=== PATIENT | female | born 1975 | race Caucasian/White ===

== ENCOUNTER 2023-10-23 13:53 | Inpatient (IN) ==
[2023-10-23 14:36] LABS: Basophils # (auto) 0.09 K/uL (0.00-0.20); Basophils % (auto) 0.9 %; Eosinophils # (auto) 0.18 K/uL (0.00-0.50); Eosinophils % (auto) 1.8 %; Hematocrit (blood only) 45.6 % (37.0-47.0); Hemoglobin 15.4 g/dl (12.0-16.0); Immature Granulocytes # (auto) 0.03 K/uL (0.01-0.20); Immature Granulocytes % (auto) 0.3 %; Lymphocytes # (auto) 4.32 K/uL (1.20-3.40); Lymphocytes % (auto) 42.9 %; Mean Corpuscular Hemoglobin 32.2 pg (25.0-34.0); Mean Corpuscular Hgb Conc 33.8 g/dL (32.0-36.0); Mean Corpuscular Volume 95.4 fL (80.0-100.0); Mean Platelet Volume 11.5 fL (9.4-12.4); Monocytes # (auto) 0.52 K/uL (0.11-0.59); Monocytes % (auto) 5.2 %; Neutrophils # (auto) 4.92 K/uL (1.40-6.50); Neutrophils % (auto) 48.9 %; Platelet Count 222 K/uL (130-400); RDW Coefficient of Variation 12.7 % (11.5-14.5); RDW Standard Deviation 44.8 fL (36.4-46.3); Red Blood Count 4.78 M/uL (4.20-5.40); White Blood Count 10.06 K/ul (4.8-10.8)
--- NOTE | 2023-10-23 14:52 | XRay Report ---
XR chest 1V portable HISTORY: 48 years-old Female Chest pain, nonspecific COMPARISON: None TECHNIQUE: AP view of the chest FINDINGS: Cardiomediastinal and hilar silhouettes are within normal limits. There is minimal linear left basila r atelectasis. No pneumothorax, pleural effusion or pulmonary edema. Bones appear grossly intact. IMPRESSION: No acute process. ACT 112: Negative or not required by law. The above report was generated using voice recognition software. It may contain grammatical, syntax o r spelling errors. Electronically signed by: Jeffrey Pike M.D. 10/23/2023 2:51 PM
[2023-10-23 14:54] LABS: Albumin Globulin Ratio 1.5 (0.9-2); BUN Creatinine Ratio 6.9 (10-20); Bilirubin,Total 0.5 mg/dl (0.2-1.0); Calcium 8.7 mg/dl (8.6-10.3); Creatinine Clr Calc Pharmacy 100.6 ml/min; Est GFR (African American) 91.3 ml/min; Est GFR (Non-African American) 78.8 ml/min; Globulin 2.6 gm/dl (2.5-4.0); Potassium 3.2 mmol/L (3.5-5.1); Total Protein 6.6 gm/dl (6.0-8.3)
[2023-10-23 15:00] LABS: Troponin I High Sensitivity 14.6 pg/ml (0-14)
--- NOTE | 2023-10-23 15:10 | Emergency Department Note ---
Impression & Plan Chest pain, Abnormal ECG, CHF exacerbation ED Provider Note NAME: CAIN RITCHIE AGE: 48 SEX: F : 1975 ARRIVES VIA: Walk-In INFORMANT: Patient, ED PROVIDER(S): Kalie Booker MD CHIEF COMPLAINT: chest pain HPI: This is a 40-year-old female with history of obesity, fatty liver disease, venous stasis insufficiency presenting for shortness of breath, chest pain. Patient notes that over the past few months he has not increased symptoms of exertional dyspnea. She notes she does take Lasix which does help with her symptoms but is not fully managing her weight gain in her bilateral lower extremities. She notes occasional chest pain, septi associated with exertion sometimes at rest. She is attempted to get care outside the hospital including echoes which are scheduled for 1 to 2 months from now as well as her testing which is delayed. No pleurisy, leg pain. ROS: See above HPI for pertinent positives & negatives. A total of 10 systems reviewed and were otherwise negative. PAST MEDICAL HISTORY: See Below PAST SURGICAL HISTORY: See Below FAMILY HISTORY: See Below SOCIAL HISTORY: See Below HOME MEDICATIONS: See Below ALLERGIES: See Below VITALS: See Below PHYSICAL EXAMINATION: General: resting comfortably in no acute distress Head: Normocephalic and atraumatic Eyes: Normal inspection, extraocular muscles intact Ear, nose, throat: Normal external exam Neck: Normal range of motion Respiratory: lungs clear to auscultation bilaterally Cardiovascular: Regular rate/rhythm, no murmur GI: soft, nontender, no guarding or rebound Extremities: 2+ edema to bilateral lower extremities below the ankles Neuro: The patient awake and alert, appropriately conversive, no focal deficits, symmetric faces Skin: Warm, dry, and intact MEDICAL DECISION MAKING: This is a 48-year-old female presenting for shortness of breath and chest pain. Consider CHF, ACS, low concern for PE without hypoxia. -Patient overall appears well but has had worsening symptoms slowly the past few months. She has shortness of breath with exertion, chest pain making CHF more likely. -ECG independently interpreted by me with normal sinus rhythm, rate of 67, normal axis, normal MA, right bundle branch block, normal QTc, no ST segment elevations consistent with STEMI criteria, new T wave inversions in 3 and lead III, 3 -Old EKG reviewed from 02 September showing this right bundle branch block -Patient has symptoms of hypertensive to 220/117 today -Overall patient does appear well however she is having chest pain with new EKG changes and exertional dyspnea. Consider CHF/cardiac insult. Patient still elevated troponin on blood work. -Bloodwork is reviewed showing no significant leukocytosis, anemia, electrolyte or creatinine abnormality. Does have transaminitis at this time, likely due to her fatty liver disease. BNP also elevated -Case discussed with patient hospital service for admission under Dr. Rosas. Differential diagnosis: ACS, CHF, PE, dissection, pneumonia ER treatment provided: See below Independent History obtained from: Diagnostics interpreted by me: ECG: See above Cardiac Monitoring: An order was placed for continuous cardiac monitoring. The monitor shows a rate of 62 with sinus rhythm. Laboratory studies: As stated above and show below. Imaging studies: See below. Past Med/Surg History Problem List (Updated 10/23/23 @ 21:12 by Kalie Booker MD) CHF exacerbation (Acute) Abnormal ECG (Acute) Chest pain (Acute) Medical History Mixed incontinence urge and stress High serum ferritin Tobacco use Myelopathy Essential tremor Migraines Epilepsy Restless legs syndrome Vitamin E deficiency Folic acid deficiency Hepatic steatosis Irritable bowel syndrome (IBS) Morbid obesity HTN (hypertension) CAD (coronary artery disease) Laryngopharyngeal reflux Mild obstructive sleep apnea Moderate persistent asthma Thyroid nodule Hypothyroidism Social History Smoking Status: Current every day smoker Tobacco Type: Cigarettes Hx Alcohol Use: No Hx Substance Use: Yes Preferred Language: [employer] Required: No Beliefs That Will Affect Care: None Current Living Situation: Spouse Feels Safe at Home: Yes Allergies Allergies Allergy/AdvReac Type Severity Reaction Status Date / Time rosuvastatin [From Crestor] Allergy Mild Joint Pain Verified 10/23/23 17:08 Home Meds Home Medications Medication Instructions Recorded Confirmed albuterol sulfate 90 mcg/actuation 2 puff inhalation QID PRN SOB or 10/23/23 10/23/23 aerosol inhaler Wheezing budesonide-formoterol HFA 160 2 puff inhalation BID 10/23/23 10/23/23 mcg-4.5 mcg/actuation aerosol inhaler cetirizine 10 mg tablet 10 mg PO DAILY 10/23/23 10/23/23 cholecalciferol (vitamin D3) 100 1,000 unit PO HS 10/23/23 10/23/23 mcg (4,000 unit) capsule folic acid 1 mg tablet 1 mg PO DAILY 10/23/23 10/23/23 furosemide 20 mg tablet 20 mg PO DAILY 10/23/23 10/23/23 levothyroxine 88 mcg tablet 88 mcg PO DAILY 10/23/23 10/23/23 losartan 50 mg tablet 50 mg PO DAILY 10/23/23 10/23/23 omeprazole 20 mg tablet,delayed 20 mg PO DAILY 10/23/23 10/23/23 release Results & Data (ED) Vital Signs Vital Signs - 24 hr 10/23/23 13:55 10/23/23 14:05 10/23/23 14:32 Temperature 36.8 C Temperature Source Skin Pulse Rate 90 68 Pulse Rate from SpO2 Sensor Pulse Rhythm Regular Pulse Strength Normal Respiratory Rate 18 Respiratory Effort / Characteristics Non-Labored SOB on Exertion Respiratory Depth Normal Normal Respiratory Pattern Regular Blood Pressure 222/117 H Blood Pressure Mean 152 Pulse Oximetry 100 Oxygen Delivery Method Room Air Sepsis Recent Fever Within 48 Hours No Sepsis New/Unexplained Change in Mental Status No Sepsis Action Taken by Nursing No Action Required 10/23/23 15:12 10/23/23 15:30 Temperature Temperature Source Pulse Rate 60 56 L Pulse Rate from SpO2 Sensor 61 56 L Pulse Rhythm Pulse Strength Respiratory Rate 16 17 Respiratory Effort / Characteristics Respiratory Depth Respiratory Pattern Blood Pressure 145/91 H 116/70 Blood Pressure Mean 109 85 Pulse Oximetry 95 98 Oxygen Delivery Method Sepsis Recent Fever Within 48 Hours Sepsis New/Unexplained Change in Mental Status Sepsis Action Taken by Nursing Laboratory Data 10/23/23 14:17 10/23/23 14:17 Lab Results 10/23/23 Range/Units 14:17 WBC 10.06 (4.8-10.8) K/ul RBC 4.78 (4.20-5.40) M/uL Hgb 15.4 (12.0-16.0) g/dl Hct 45.6 (37.0-47.0) % MCV 95.4 (80.0-100.0) fL MCH 32.2 (25.0-34.0) pg MCHC 33.8 (32.0-36.0) g/dL RDW Std Deviation 44.8 (36.4-46.3) fL RDW Coeff of Kite 12.7 (11.5-14.5) % Plt Count 222 (130-400) K/uL MPV 11.5 (9.4-12.4) fL Immature Gran % (Auto) 0.3 % Neut % (Auto) 48.9 % Lymph % (Auto) 42.9 % [place] % (Auto) 5.2 % Eos % (Auto) 1.8 % Baso % (Auto) 0.9 % Neut # (Auto) 4.92 (1.40-6.50) K/uL Lymph # (Auto) 4.32 H (1.20-3.40) K/uL [place] # (Auto) 0.52 (0.11-0.59) K/uL Eos # (Auto) 0.18 (0.00-0.50) K/uL Baso # (Auto) 0.09 (0.00-0.20) K/uL Immature Gran # (Auto) 0.03 (0.01-0.20) K/uL Sodium 143 (136-145) mmol/L Potassium 3.2 L (3.5-5.1) mmol/L Chloride 107 (98-107) mmol/L Carbon Dioxide 28 (21-32) mmol/L Anion Gap 8 (3-11) BUN 6 (6-23) mg/dl Creatinine 0.87 (0.6-1.2) mg/dl Est Cr Clr Drug Dosing 100.6 ml/min Est GFR ( Amer) 91.3 ml/min Est GFR (Non-Af Amer) 78.8 ml/min BUN/Creatinine Ratio 6.9 L (10-20) Glucose 75 (70-99(Fasting)) mg/dl Calcium 8.7 (8.6-10.3) mg/dl Total Bilirubin 0.5 (0.2-1.0) mg/dl AST 75 H (13-39) U/L ALT 87 H (7-52) U/L Alkaline Phosphatase 63 (34-104) U/L Troponin I High Sens 14.6 H (0-14) pg/ml B-Natriuretic Peptide 124 H (0-100) pg/ml Total Protein 6.6 (6.0-8.3) gm/dl Albumin 4.0 (3.4-5.0) gm/dl Globulin 2.6 (2.5-4.0) gm/dl Albumin/Globulin Ratio 1.5 (0.9-2) Lipase 32 (11-82) U/L Administered Medications Discontinued Medications Labetalol HCl (Labetalol Hcl Iv 5 Mg/Ml 20ml) 10 mg IV NOW STA Stop: 10/23/23 15:11 Last Admin: 10/23/23 17:43 Dose: Not Given Documented By: Potassium Chloride (Potassium Chloride Crtab 20 Meq Tabcr) 40 meq PO NOW STA Stop: 10/23/23 16:22 Last Admin: 10/23/23 17:25 Dose: 40 meq Documented By: BITA Imaging Data Radiologist's Impression: Chest X-Ray 10/23/23 14:05 XR chest 1V portable HISTORY: 48 years-old Female Chest pain, nonspecific COMPARISON: None TECHNIQUE: AP view of the chest FINDINGS: Cardiomediastinal and hilar silhouettes are within normal limits. There is minimal linear left basilar atelectasis. No pneumothorax, pleural effusion or pulmonary edema. Bones appear grossly intact. IMPRESSION: No acute process. ACT 112: Negative or not required by law. The above report was generated using voice recognition software. It may contain grammatical, syntax or spelling errors. Electronically signed by: Jeffrey Pike M.D. 10/23/2023 2:51 PM Discharge Plan Visit Data Chief Complaint: Chest Pain Stated Complaint: CHEST PAIN, SOB, HIGH BP, L LEG SWELLING ED Provider: Kalie Booker Discharge Problem: Chest pain, Abnormal ECG, CHF exacerbation Patient Disposition: Admitted As Inpatient Discharge Instructions Interventions: ED Discharge Assessment Last Done: 10/23/23 18:25
--- NOTE | 2023-10-23 16:10 | History & Physical Report ---
Date of Service October 23, 2023 Assessment & Plan (1) Chest pain: Plan Vickie Pathak is a 48y/o with PMHx of hypothyroidism, thyroid nodule, moderate persistent asthma without complication, mild obstructive sleep apnea [on CPAP], laryngopharyngeal reflux, CAD, HTN, morbid obesity, IBS, hepatic steatosis, epilepsy, essential tremor, myelopathy, tobacco use disorder, history of DVT [06/2012], migraines and other problems listed below who presented to the ED today for evaluation of chest pain. Chest Pain, R/O ACS: History as per HPI. EKG negative for any overt, acute ischemic changes. CXR negative. Initial troponin 14.6, repeat troponin 11.4 - will continue to trend. BNP 124. Daily EKG x 2. EKG w/ chest pain PRN. Routine cardiology consult at patient's request. Echo pending. Smoking cessation encouraged. Hgb A1c, lipid panel in AM. NPO at midnight pending cardiology evaluation. Scheduled 81mg ASA daily starting tomorrow. Uncontrolled HTN: Continue Lasix and losartan. S/p 10mg IV labetalol in ED, BP improved. Hypokalemia: K+ 3.2 on presentation. 40 mEq po K+ repleted in ED. Continue w/ scheduled K+ supplementation tomorrow. Monitor and replete K+ PRN. Epilepsy: Not currently on any seizure medications. Seizure precautions. Asthma: Continue home Symbicort, hold home rescue inhaler. Xopenex nebs PRN for SOB/wheezing while inpatient. Other Chronic Medical Conditions: GERD, hypothyroidism [TSH WNL], seasonal allergies --> Continue home meds for these specific conditions. Use CPAP HS for SHEFALI. DVT Prophylaxis: SQ Lovenox Code Status: FULL CODE PCP: Mervat Almanzar PA-C Disposition: Admit to Med/Surg + Telemetry Patient seen in collaboration with Dr. Rosas. Please see addendum. I spent a total of 55 minutes coordinating, documenting, and providing care for this patient excluding time spent in the performance of separately billed services. This included personally reviewing all current laboratories and imaging studies, medical reconciliation, outpatient chart review and discussion with specialists. This chart was completed in part utilizing Speech Voice Recognition Software. Grammatical errors, random word insertions, pronoun errors, and incomplete sentences are an occasional consequence of this system due to software limitations, ambient noise, and hardware issues. Any formal questions or concerns about the content, text, or information contained within the body of this dictation should be directly addressed to the provider for clarification. History of Present Illness Chief Complaint: Chest Pain, SOB Primary Care Provider: Mervat Almanzar PA-C Vickie Pathak is a 48y/o with PMHx of hypothyroidism, thyroid nodule, moderate persistent asthma without complication, mild obstructive sleep apnea [on CPAP], laryngopharyngeal reflux, CAD, HTN, morbid obesity, IBS, hepatic steatosis, epilepsy, essential tremor, myelopathy, tobacco use disorder, history of DVT [06/2012], migraines and other problems listed below who presented to the ED today for evaluation of chest pain. History obtained from patient and associated chart review. Patient with intermittent chest pain since August. Describes it more of as a chest tightening sensation under the L breast region. Reports it can come on at any time, however is worse with exertion. She has also noticed some increasing SOB with exertion over the past few weeks. No supplemental oxygen use at home. Also endorses some intermittent dizziness. Had a cardiac cath done on 09/17/21 at [facility] after stress testing came back abnormal. No acute findings were noted and no interventions were performed. She smokes about 1ppd, no alcohol use. No recreational drug use. Had a DVT in 2012. Allergies Allergy/AdvReac Type Severity Reaction Status Date / Time rosuvastatin [From Crestor] Allergy Mild Joint Pain Verified 10/23/23 17:08 Home Medications Medication Instructions Recorded Confirmed Type albuterol sulfate 90 mcg/actuation 2 puff inhalation QID PRN SOB or 10/23/23 10/23/23 History aerosol inhaler Wheezing budesonide-formoterol HFA 160 2 puff inhalation BID 10/23/23 10/23/23 History mcg-4.5 mcg/actuation aerosol inhaler cetirizine 10 mg tablet 10 mg PO DAILY 10/23/23 10/23/23 History cholecalciferol (vitamin D3) 100 1,000 unit PO HS 10/23/23 10/23/23 History mcg (4,000 unit) capsule folic acid 1 mg tablet 1 mg PO DAILY 10/23/23 10/23/23 History furosemide 20 mg tablet 20 mg PO DAILY 10/23/23 10/23/23 History levothyroxine 88 mcg tablet 88 mcg PO DAILY 10/23/23 10/23/23 History losartan 50 mg tablet 50 mg PO DAILY 10/23/23 10/23/23 History omeprazole 20 mg tablet,delayed 20 mg PO DAILY 10/23/23 10/23/23 History release Past Med/Surg History Problem List CHF exacerbation (Acute) Abnormal ECG (Acute) Chest pain (Acute) Medical History Mixed incontinence urge and stress High serum ferritin Tobacco use Myelopathy Essential tremor Migraines Epilepsy Restless legs syndrome Vitamin E deficiency Folic acid deficiency Hepatic steatosis Irritable bowel syndrome (IBS) Morbid obesity HTN (hypertension) CAD (coronary artery disease) Laryngopharyngeal reflux Mild obstructive sleep apnea Moderate persistent asthma Thyroid nodule Hypothyroidism Social History Smoking Status: Current every day smoker Tobacco Type: Cigarettes Hx Alcohol Use: No Hx Substance Use: Yes Preferred Language: [employer] Supervisor Required: No Beliefs That Will Affect Care: None Current Living Situation: Spouse Feels Safe at Home: Yes Review of Systems Review of Systems: At least ten systems reviewed and negative, except as noted in the HPI. Physical Exam Physical Exam: Please refer to Dr. Rosas's addendum for physical examination findings. Results & Data Results & Data Vital Signs (Past 12 Hours) Vital Signs Temp Pulse Resp BP Pulse Ox O2 Del Method 10/23/23 15:12 60 16 145/91 H 95 10/23/23 14:32 68 10/23/23 13:55 36.8 C 90 18 222/117 H 100 Room Air Laboratory Results Short CBC 10/23/23 Range/Units 14:17 WBC 10.06 (4.8-10.8) K/ul Hgb 15.4 (12.0-16.0) g/dl Hct 45.6 (37.0-47.0) % Plt Count 222 (130-400) K/uL BMP 10/23/23 14:17 Sodium 143 Potassium 3.2 L Chloride 107 Carbon Dioxide 28 BUN 6 Creatinine 0.87 Glucose 75 Calcium 8.7 Liver Function 10/23/23 Range/Units 14:17 Total Bilirubin 0.5 (0.2-1.0) mg/dl AST 75 H (13-39) U/L ALT 87 H (7-52) U/L Alkaline Phosphatase 63 (34-104) U/L Albumin 4.0 (3.4-5.0) gm/dl Diagnostic Findings Chest X-Ray 10/23/23 14:05 XR chest 1V portable HISTORY: 48 years-old Female Chest pain, nonspecific COMPARISON: None TECHNIQUE: AP view of the chest FINDINGS: Cardiomediastinal and hilar silhouettes are within normal limits. There is minimal linear left basilar atelectasis. No pneumothorax, pleural effusion or pulmonary edema. Bones appear grossly intact. IMPRESSION: No acute process. ACT 112: Negative or not required by law. The above report was generated using voice recognition software. It may contain grammatical, syntax or spelling errors. Electronically signed by: Jeffrey Pike M.D. 10/23/2023 2:51 PM Medications Administered Discontinued Medications Labetalol HCl (Labetalol Hcl Iv 5 Mg/Ml 20ml) 10 mg IV NOW STA Stop: 10/23/23 15:11 Last Admin: 10/23/23 17:43 Dose: Not Given Documented By: Potassium Chloride (Potassium Chloride Crtab 20 Meq Tabcr) 40 meq PO NOW STA Stop: 10/23/23 16:22 Last Admin: 10/23/23 17:25 Dose: 40 meq Documented By: BITA Code Status & VTE Plan Code Status FULL CODE Supervising Physician Co-Signing Physician Notes Patient is a 48-year-old female with history of obesity, hypertension, fatty liver, hypothyroidism, asthma, tobacco use disorder, GERD, epilepsy currently not on medications, history of DVT currently not on anticoagulation and other medical problems presents with history of ongoing intermittent left-sided chest pain, nonradiating, worsens with exertion, associated with some dizziness and dyspnea on exertion. Chest pain only lasts for couple of seconds. Patient was recently evaluated by PCP and thought to have asthma exacerbation and started on an inhaler and Medrol Dosepak. Patient did not tolerate Medrol Dosepak, reports increased palpitations and so she discontinued. She states that she was trying to get cardiology evaluation but unable to obtain any closer appointment. She reports to have cardiac catheterization 2 years ago which did not show any blockages per patient. Her blood pressure has been variable lately. She feels having generalized weakness and feels lethargic. Please review HPI for complete details of presentation. I personally reviewed blood work, imaging studies and EKG. EKG showed normal sinus rhythm with sinus arrhythmia, right bundle branch block, QTc 471, prior EKG in August also showed right bundle branch block. She admits to continued to smoke 1 pack/day currently. Physical Exam: Vitals signs as noted above General Appearance: Morbidly obese, no apparent distress Head: normocephalic, Atraumatic Eyes: normal inspection, EOMI Neck: supple, Trachea midline Respiratory/Chest: Normal breath sounds, CTA, No accessory muscle use Cardiovascular: S1, S2, No murmur Abdomen/GI:Soft, Non tender, Bowel sounds present Extremities/Musculoskeletal:normal inspection, trace pedal edema Neurologic/Psych:AAOX3, grossly no focal neurological deficits Skin: normal color, warm Atypical chest pain R/O ACS Uncontrolled hypertension likely contributing--BP variable BNP mildly elevated 124 Chest x-ray showed no signs of congestion/pneumonia Initial troponin mildly elevated/near normal EKG showed no signs of acute ischemia Check resting echo, trend troponins Start on aspirin 81 mg daily Check lipid panel, A1c Will consult cardiology per patient's request Monitor and adjust medications to control blood pressure Will benefit from sleep study as outpatient May need stress test Inpt Vs Out patient Hypokalemia Replete and monitor Mild transaminitis Likely due to fatty liver Monitor Hypertension Losartan recently increased to 50 mg daily Also started on Lasix Monitor and adjust medications as needed Morbid obesity BMI 42 Tobacco use disorder Counseled to quit smoking Nicotine patch Recent asthma exacerbation Patient was started on Medrol Dosepak by PCP Patient refusing to continue Medrol Dosepak due to intolerance Currently no wheezing on exam Continue home inhalers Nebs as needed I personally interviewed and examined at bedside. Patient's care is coordinated with Amarilys Navas PA-C. I have reviewed the advanced practitioner's documentation, and I agree with plan of care. Please refer to the documentation above for details of patient's presentation and for discussion of other issues. I spent a total [id number] coordinating, documenting, and providing care for this patient excluding time spent in the performance of separately billed services. (1) Chest pain Chest pain type: unspecified Qualified Code(s): R07.9 - Chest pain, unspecified
[2023-10-23 17:24] LABS: Magnesium 1.8 mg/dl (1.7-2.4)
[2023-10-23] MEDS: POTASSIUM CHLORIDE CRTAB 20 MEQ TABCR PO STA (17:25)
[2023-10-23 17:32] LABS: Troponin I High Sensitivity 11.4 pg/ml (0-14)
[2023-10-23 17:42] LABS: Thyroid Stimulating Hormone 2.479 uIu/ml (0.300-4.500)
[2023-10-23] MEDS: LABETALOL HCL IV 5 MG/ML 20ML IV STA (17:43)
[2023-10-23] MEDS ORDERED: LEVALBUTEROL HCL 0.63 MG/3 ML NEB NEB PRN (19:09)
[2023-10-23] MEDS ORDERED: ACETAMINOPHEN 325 MG TAB PO PRN (19:09)
[2023-10-23] MEDS ORDERED: POLYETHYLENE (MIRALAX) 17 GM PACK PO PRN (19:09)
[2023-10-23] MEDS ORDERED: ONDANSETRON INJ 2 MG/ML 2 ML VIAL IV PRN (19:09)
--- OUTSIDE RECORDS SUMMARY | 2023-10-23 19:10 | External Medical Summary | Summary of Care ---
Author Name Unknown Organization [facility] Address [address] [place] [address] Phone [phone] Care Team Providers Care Rail Assembler Name Role Phone Mervat Almanzar PA-C Primary Care Provider [phone] Reason for Visit * Evaluate & Treat - Unlimited Visits (Within 30 days (routine)) - Authorized Specialty Diagnoses / Procedures Referred By Lena t Referred To Contact Gastroenterology Diagnoses Hepatic steatosis High serum ferritin Elevated liver enzymes Mervat Almanzar PA-C [address] [place] [address] Referral ID Status Reason Start Date Expiration Date Visits Requested Visits Authorized [id number] Authorized Specialty Services Required 09/06/2023 09/05/[phone] Encounter Details Date Type Department Care Team (Late st Contact Info) Description 09/17/2023 9:20 AM EDT Telemedicine Hepatology, [facility] [address] [place] [address] Delmar Morin MD [address] [place] [address] Metabolic dysfunction-associate d steatotic liver disease (MASLD)*; Elevated ferritin; Obesity, Class III, BMI 40-49.9 (morbid obesity) (HCC) Allergies Active Allergy Reactions Criticality Noted Date Comments Rosuvastatin Low 06/23/2022 Joint pain documented as of this encounter (statuses as of 09/19/2023) Medications Medication Sig Dispensed Refills Start Date End Date Status Fexofenadine HCl 180 MG Oral Tablet Take 1 Tablet by mouth in the morning. Active Sulindac 200 MG Oral TabletIndications:D egeneration of lumbosacral intervertebral disc Take 1 Tablet by mouth in the morning and 1 Tablet before bedtime. With food. 60 Tablet 11 04/23/2022 Active Additional Information Patient not taking.Reported on 03/08/2023 Cetirizine HCl 10 MG Oral Tablet (ZyrTEC) Take 1 Tablet by mouth in the morning. Active Folic Acid 1 MG Oral TabletIndications:F olic acid deficiency Take 1 Tablet by mouth in the morning. 90 Tablet 2 06/24/2022 Active Additional Information Patient not taking.Reported on 03/08/2023 Nicotine Polacrilex 4 MG Mouth/Throat Lozenge (Nicorette) Apply to the mouth or throat. Active Furosemide 20 MG Oral Tablet (Lasix)Indications: Lower extremity edema Take 1 Tablet by mouth daily as needed (swelling). TAKE ONE TABLET BY MOUTH EVERY MORNING NEEDED FOR SWELLING OF LOWER EXREMITIES 30 Tablet 2 09/16/2022 Active Additional Information Patient not taking.Reported on 09/17/2023 Albuterol Sulfate HFA 108 (90 Base) MCG/ACT Inhalation Aerosol SolutionIndications :Mild intermittent asthma with exacerbation 2 puffs every 4 hours as needed for asthma 18 g 1 09/16/2022 Active Omeprazole 20 MG Oral Capsule Delayed Release (PriLOSEC)Indicatio ns:Laryngopharyngea l reflux Take 1 Capsule by mouth in the morning. 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 90 Tablet 3 09/06/2023 Active Vitamin D3 250 MCG (51843 UT) Oral TabletIndications:V itamin D deficiency Take 1 Tablet by mouth every evening. 90 Tablet 3 09/06/2023 Active Losartan Potassium 25 MG Oral Tablet (Cozaar)Indications :HTN, goal below 140/90 Take 1 Tablet by mouth in the morning. 30 Tablet 5 09/03/2023 Discontinu ed(Refill) documented as of this encounter (statuses as of 09/19/2023) Active Problems Problem Noted Date Diagnosed Date Wears dentures 06/24/2022 Myelopathy 08/21/2021 HTN, goal below 140/90 08/21/2021 High serum ferritin 08/27/2020 Morbid obesity due to excess calories 04/23/2020 Thiamine deficiency 03/22/2020 Vitamin E deficiency 03/22/2020 Coronary artery disease invo lving [place] coronary artery of [place] heart without angina pectoris 11/28/2019 Overview: Cardiac cath 09/17/2021: Non-obstructive coronary artery disease. Folic acid deficiency 04/05/2017 Tobacco abuse 03/25/2017 Laryngopharyngeal reflux 05/02/2015 Overview: Per ENT 04/30 Mild obstructive sleep apnea 02/25/2015 Overview: On PSG 12/03/14, 2 week trial cpap not tolerated and did not feel better Essential tremor 01/14/2015 RLS (restless legs syndrome) 12/03/2014 Hepatic steatosis 12/12/2013 Overview: On CT 11/28, hepatitis panel neg, referred to GI/nutrition Fatty liver on ultrasound 10/2019 Renal cyst, left 12/12/2013 Overview: X 4 on L, largest 4.[address] for PE 02/2016: 4 cm probable cyst upper pole left kidney. A 2nd probable cyst seen also on the upper pole measuring 1.7 cm has increased in size. Further evaluation with an ultrasound of the kidneys is recommended. 03/2016: renal cysts stable on US Thyroid nodule 07/17/2013 Overview: U/s 07/13/13: 1.9 cm nodule in the right upper pole and 1.4 cm nodule in left lower pole. Ultrasound-guided biopsy is recommended. ENT and endo recommended by gen surg. Biopsy 08/04/[address] Chavarria: L inferior nodule benign + inflammation, R superior nodule benign Ultrasound 03/30/2017: R thyroid nodule stable Mixed incontinence urge and stress 07/13/2013 Overview: Machine Pan Greaser 06/28: oxybutynin 09/28 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 Hypothyroidism 09/01/2010 Overview: + thyroid ab 08/15/13 Irritable bowel syndrome 09/01/2010 Nonintractable epilepsy without status epileptic us Overview: Last seizure 2011 Migraines Intermittent asthma with rel iever use up to twice per week without complication Overview: PFT 07/20/16: no bronchodilator response, extrathoracic airway obstruction PFT 11/2019: normal documented as of this encounter (statuses as of 09/19/2023) Resolved Problems Problem Noted Date Diagnosed Date Resolved Date Body mass index (BMI) of 40. 0 to 44.9 in adult 11/22/2017 04/20/2019 Overview: Per Obesity protocol #1 Venous insufficiency 07/02/2014 019 Overview: Vascular consult 07/02/2014 recommended compression hose; suspects deep venous reflux as well as lymphedema Elevated transaminase measurement 12/07/2013 09/02/2016 Female stress incontinence 09/07/2013 0 09/02/2016 DVT (deep venous thrombosis) 06/15/2012 09/02/2016 Overview: unprovoked FAMILY HISTORY OF COLONIC POLYPS 09/01/2010 09/02/2016 Hypothyroid 06/29/2013 documented as of this encounter (statuses as of 09/19/2023) Immunizations Name Administration Dates Next Due HepA Inact/HepB Recomb>=18yrs old 08/27/2020 Hepatitis B, 20+ yrs 09/30/2020,09/04/2011,08/06 PPD 04/22/2016,06/10/2015,05/27/2015 Pneumococcal Conjugate Vacc, 13 Valent (Prevnar) 12/17/2011 Pneumococcal Polysaccharide PPV23 (Pneumovax) 06/15/2016 Seasonal Influenza, Quadriva lent, No Preserve, IM 12/07/2018,11/28/2014 TDAP (age 10 and older)(Boostrix) 06/18/2014 documented as of this encounter Social History Tobacco Use Types Packs/Day Years Used Date Smoking Tobacco: Every Day Cigarettes 1.5 22 Started: 08/31/2000; Last attempted to quit: 08/31/2022 Smokeless Tobacco: Never Comments:1 pack/day 03/05/22 Alcohol Use Standard Drinks/Week Comments No 0 (1 standard drink = 0.6 oz pur e alcohol) PHQ-2 Answer Date Recorded PHQ Adult Total Score 2 09/16/2022 Hunger Vital Sign Answer Date Recorded Within the past 12 months, y ou worried that your food would run out before you got the money to buy more. Never true 04/24/19 23 Within the past 12 months, t he food you bought just didn't last and you didn't have money to get more. Never true 04/23/2022 Sex and Gender Information Value Date Recorded Sex Assigned at Female 04/23/2022 11:02 AM EST Gender Identity Female 04/23/2022 11:02 AM EST Sexual Orientation Straight 04/23/2022 11 :02 AM EST Job Start Date Occupation Industry Not on file Not on file Not on file documented as of this encounter Progress Notes * Delmar Morin MD - 09/17/2023 9:19 AM EDT Images from the original note were not included. History of Present Illness Vickie Pathak is a 47 year old woman referred to hepatology for evaluation of mildly elevated liver transaminase levels and ferritin level. She reports some symptoms including dizzy spells and fatigue for which she has upcoming cardiac evaluations. She also mentioned severe cramping abdominal pain, typically associated with bowel movements. She doesn't have significant changes with her bowel movements otherwise, and has no other GI symptoms. She has muscle cramps, usually in the large muscle groups. She reports gaining about 20 pounds in the past year. She has mild lower extremity edema which she attributes to venous insufficiency. Recent evaluations include blood tests that showed AST of 49 and ALT of 51 with the rest of her liver chemistry being normal. Ferritin was noted to be 456 with iron binding capacity of 246. Transferrin saturation and iron levels were normal. CBC was normal too. Of note, she reports not drinking alcohol. She has no known family history of liver diseases other than her father who had AUD. She has features of metabolic dysfunction with class III obesity, hypertriglyceridemia, and hypertension. Serologies were negative for HBV and HCV. TTG Iga, S[place], anti-smooth muscle antibody were normal/negative as well. Ceruloplasmin was also normal. Wt Readings from Last 10 Encounters: 09/03/23 119.6 kg (263 lb 9.6 oz) 03/08/23 114.7 kg (252 lb 12.8 oz) 09/16/22 116.1 kg (256 lb) 06/23/22 112.4 kg (247 lb 14.4 oz) 04/23/22 111.8 kg (246 lb 8 oz) 03/05/22 111.6 kg (246 lb) 10/06/21 112 kg (247 lb) 09/17/21 111.6 kg (246 lb) 08/27/21 110.7 kg (244 lb) 08/21/21 109.3 kg (241 lb) Physical Exam There were no vitals filed for this visit. GENERAL: No acute distress. Looks comfortable. EYES: Conjunctiva clear and anicteric. SKIN: No jaundice. No spider angiomata or facial telangectasia HENT: Moist oral mucosa LUNGS: Normal respiratory rate. Unlabored breathing NEURO: Alert, oriented x3, normal conversation, normal memory on gross exam PSYCH: calm and appropriate mood and affect I have reviewed the following results: FIB-4 Calculation: 1.4 at 09/03/2023 3:52 PM Calculated from: SGOT/AST: 49 U/L at 09/03/2023 3:52 PM SGPT/ALT: 51 U/L at 09/03/2023 3:52 PM Platelets: 231 K/uL at 09/03/2023 3:52 PM Age: 47 years Other labs reviewed as mentioned in the HPI. US abdomen limited, 11/02/2019 - hepatic steatosis, normal bile ducts and gallbladder. No ascites. Assessment and Plan Metabolic dysfunction-associated steatotic liver disease (MASLD) Elevated ferritin Obesity, Class III, BMI 40-49.9 (morbid obesity) (HCC) Patient most likely has MASLD without advanced liver fibrosis based on tests done so far and her risk factors. Elevated ferritin is likely related to that. It would be reasonable to check for HFE gene mutations. I discussed MASLD, its natural history, and general strategies of management. I explained that the mainstay of treatment being weight loss, and continued management of features of metabolic syndrome.Loss of about 7-10 % of body weight gradually in the coming months was recommended. I suggested strategies of monitoring caloric intake as well as ways of increasing physical activity. She is scheduled to be seen by Nutrition and Weight management clinic also. Follow up as needed. Wrap-Up Time: I spent a total of 30-39 minutes (exact time 35 mins) on the date of service in preparation, delivery, and documentation of the care provided to Vickie Pathak excluding any time spent in the performance of separately billed services. Telemedicine: Patient location: HOME. I was in a hospital or clinic location. After connecting through [employer],patient was verified with two unique identifiers. Patient (or authorized legal textiles sales representative) was then informed that this was a Telemedicine visit and being conducted confidentially over secure lines. Methods to assure confidentiality were taken. Patient acknowledged consent and understanding of pr ivacy and security of the Telemedicine visit. The patient agreed to participate. documented in this encounter Plan of Treatment Upcoming Encounters Date Type Department Care Team (Late st Contact Info) Description 11/25/2023 9:00 AM EDT Appointment Cardiac Studies, [facility] [address] [facility] [place] [phone] 12/22/2023 9:40 AM EST [facility] [address] [place] [address] Funmilayo Tabor MD [address] [place] [address] 03/15/2024 4:40 PM EST Office Visit [facility] [address] [phone] Mervat Almanzar PA-C [address] [phone] Scheduled Procedures Name Priority Associated Diagnoses Date/Ti me COLONOSCOPY FLEXIBLE PROXIMA L DIAGNOSTIC Recall History of colonic polyps Scheduled Referrals Name Type Priority Associated Diagnoses Orde r Schedule HEPATOLOGY REFERRAL OP Referral Within 30 days (routine) Hepatic steatosis High serum ferritin Elevated liver enzymes Ordered: 09/06/2023 Health Maintenance Due Date Last Done Comments HIV Screening 10/16/1990 HPV/Co-Test 10/16/2005 DISCUSS TOBACCO CESSATION (REFER TO SMARTSET #3291) 06/29/2014 06/29/2013, 10/27/2012 Cologuard 10/16/2020 Fecal Occult Blood Test 10/16/2020 Sigmoidoscopy 10/16/2020 Mammogram 11/15/2020 11/16/2019, 05/0 08/2018, 03/16/2017, Additional history exists COVID-19 Vaccine ( - 2022- season) 2022 Cervical Cancer Screening 01/25/2023 Pap Smear 01/25/2023 01/26/2020, 01/15, 06/18/2014 Depression Screening 09/17/2023 09/16/2022, 07/01/19 Influenza Vaccine (FLU shot) (#1) 2023 12/07/2018, 11/28/2014 DTaP,Tdap,and Td Vaccines (2 - Td or Tdap) 06/18/2024 06/18/2014 GFR 09/02/2024 09/03/2023, 05/0 10/2022, 08/28/2021, Additional history exists TSH 09/02/2024 09/03/2023, 05/0 10/2022, 08/28/2021, Additional history exists Albumin/Creatinine Ratio 04/23/2025 04/23/2022 Colonoscopy 08/14/2025 08/14/2020, 08/14/2020 Colorectal Cancer Screening 08/14/2025 Diabetes Screening 09/02/2026 09/03/2023, 0 09/03/2023, 06/23/2022, Additional history exists Pneumococcal Vaccine: Pediatrics (0 to 5 Years) and At-Risk Patients (6 to 64 Years) (3 of 3 - PPSV23 or PCV20) 10/16/2040 06/15/2016, 12/17/2011 Hepatitis C Screening Completed 07/22/2020, 014 RETIRED - COLONOSCOPY-EVERY 5 YRS AGES 18-100 Discontinued 08/14/2020, 08/14/2020 Hepatitis B Vaccine Completed 09/30/2020, 08/27/2020, 09/04/2011, Additional history exists HPV (Gardasil) Vaccine Aged Out No lo nger eligible based on patient's age to complete this topic MENINGOCOCCAL (MENACTRA/MENVEO) Aged Out No longer eligible based on patient's age to complete this topic documented as of this encounter Medical Devices Not on filedocumented as of this encounter Visit Diagnoses Diagnosis Metabolic dysfunction-associated steatotic liver disease (MASLD)- Primary Elevated ferritin Other abnormal blood chemistry Obesity, Class III, BMI 40-49.9 (morbid obesity) (HCC) Morbid obesity documented in this encounter Advance Directives * Full Code (Latest Code Status on File) Date Activated Date Inactivated Comments 10/02/2015 4:09 PM 10/02/2015 9:40 PM This order r eflects the patients wishes and were consensually agreed upon. Question Answer Comments Discussion of Advance Directives occurred with: Patient Does the patient have a Living Will? No Does the patient have Health Care Power of Attor yas? No Care Teams Rail Assembler Relationship Specialty Start Date End Date Mervat Almanzar PA-C [address] [id number] PCP - General Physician Labor Relations Representative 09/16/22 documented as of this encounter
--- OUTSIDE RECORDS SUMMARY | 2023-10-23 19:10 | External Medical Summary | Summary of Care ---
Author Name Unknown Organization [facility] Address [address] [place] [address] Phone [phone] Care Team Providers Care Spooler Rubber Strand Name Role Phone Mervat Almanzar PA-C Primary Care Provider [phone] Reason for Referral * Evaluate & Treat - Unlimited Visits (Within 10 days (routine)) - Pending Review Specialty Diagnoses / Procedures Referred By Contact Referred To Contact Cardiovascular Medicine / Cardiology Diagnoses HTN, goal below 140/90 Lower extremity edema Coronary artery disease involving [place] coronary artery of [place] heart without angina pectoris Mervat [place] [address] Referral ID Status Reason Start Date Expiration Date Visits Requested Visits Authorized [id number] Pending Review Specialty Services Required 10/21/[phone] Question Answer Referral Priority Within 10 days (routine) Where should this appointment be scheduled? [facility] To which of the following clinics are you referring your patient? General Cardiology Clinic * Evaluate & Treat - Unlimited Visits (Within 10 days (routine)) - Pending Review Specialty Diagnoses / Procedures Referred By Lena t Referred To Contact Sleep Medicine / Sleep Disorders Diagnoses Mild obstructive sleep apnea HTN, goal below 140/90 Mervat Almanzar [place] [address] Referral ID Status Reason Start Date Expiration Date Visits Requested Visits Authorized [id number] Pending Review Specialty Services Required 10/21/2023 2 2 Question Answer GS CAD SLEEP MED ADULT REFERRAL Sleep Apnea Testing and Management Does the patient snore and/or gasp at night or has been told they stop breathing at night? Yes, document patient's symptoms in progress note Referral Priority Within 10 days (routine) Where should this appointment be scheduled? [facility] Reason for Visit * Reason Comments Acute Discuss elevated blo od pressure-has still been getting high readings even with being on medication Is having headaches, SOB, chest pain, dizziness, fatigueHas quit her job since last OV d/t not feeling well Brought along home BP cuff to be validated-home reading today in clinic 127/95 P 65 Encounter Details Date Type Department Care Team (Late st Contact Info) Description 10/21/2023 10:00 AM EDT Office Visit [facility] [address] [phone] Mervat Almanzar PA-C [address] [address] Moderate persistent asthma without complication*; Moderate persistent asthma with exacerbation; Mild obstructive sleep apnea; HTN, goal below 140/90; Lower extremity edema; Coronary artery disease involving [place] coronary artery of [place] heart without angina pectoris Allergies Active Allergy Reactions Criticality Noted Date Comments Rosuvastatin Low 06/23/2022 Joint pain documented as of this encounter (statuses as of 10/21/2023) Medications Medication Sig Dispensed Refills Start Date End Date Status Fexofenadine HCl 180 MG Oral Tablet Take 1 Tablet by mouth in the morning. Active Cetirizine HCl 10 MG Oral Tablet (ZyrTEC) Take 1 Tablet by mouth in the morning. Active Folic Acid 1 MG Oral TabletIndications:F olic acid deficiency Take 1 Tablet by mouth in the morning. 90 Tablet 2 06/24/2022 Active Additional Information Patient not taking.Reported on 03/08/2023 Omeprazole 20 MG Oral Capsule Delayed Release (PriLOSEC)Indicatio ns:Laryngopharyngea l reflux Take 1 Capsule by mouth in the morning. 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 90 Tablet 3 09/06/2023 Active Vitamin D3 250 MCG (82911 UT) Oral TabletIndications:V itamin D deficiency Take 1 Tablet by mouth every evening. 90 Tablet 3 09/06/2023 Active Losartan Potassium 50 MG Oral Tablet (Cozaar)Indications :HTN, goal below 140/90 Take 1 Tablet by mouth in the morning. 30 Tablet 5 09/17/2023 Active Budesonide-Formoter ol Fumarate 160-4.5 MCG/ACT Inhalation Aerosol (Symbicort)Indicati ons:Moderate persistent asthma without complication Inhale 2 Puffs by mouth in the morning and 2 Puffs before bedtime. 10.2 g 5 10/21/2023 Active Albuterol Sulfate HFA 108 (90 Base) MCG/ACT Inhalation Aerosol SolutionIndications :Moderate persistent asthma without complication Inhale 2 puffs by mouth every 4 hours as needed for asthma 18 g 1 10/21/2023 Active Spacer/Aero-Holding Chambers DeviceIndications:M oderate persistent asthma without complication Use with inhaler. 1 Each 10/21/2023 Active Furosemide 20 MG Oral Tablet (Lasix)Indications: Lower extremity edema Take 1 Tablet by mouth in the morning. 30 Tablet 5 10/21/2023 Active predniSONE 20 MG Oral Tablet (Deltasone)Indicati ons:Moderate persistent asthma without complication,Mild obstructive sleep apnea,HTN, goal below 140/90,Lower extremity edema,Moderate persistent asthma with exacerbation Take 2 Tablets by mouth in the morning for 5 days. 10 Tablet 10/21/2023 4 Active Sulindac 200 MG Oral TabletIndications:D egeneration of lumbosacral intervertebral disc Take 1 Tablet by mouth in the morning and 1 Tablet before bedtime. With food. 60 Tablet 11 04/23/2022 4 Discontinu ed(Patient preference /discontin uation) Nicotine Polacrilex 4 MG Mouth/Throat Lozenge (Nicorette) Apply to the mouth or throat. 4 Discontinu ed(Patient preference /discontin uation) Furosemide 20 MG Oral Tablet (Lasix)Indications: Lower extremity edema Take 1 Tablet by mouth daily as needed (swelling). TAKE ONE TABLET BY MOUTH EVERY MORNING NEEDED FOR SWELLING OF LOWER EXREMITIES 30 Tablet 2 09/16/2022 4 Discontinu ed(Patient preference /discontin uation) Albuterol Sulfate HFA 108 (90 Base) MCG/ACT Inhalation Aerosol SolutionIndications :Mild intermittent asthma with exacerbation 2 puffs every 4 hours as needed for asthma 18 g 1 09/16/2022 4 Discontinu ed(Refill) documented as of this encounter (statuses as of 10/21/2023) Active Problems Problem Noted Date Diagnosed Date Wears dentures 06/24/2022 Myelopathy 08/21/2021 HTN, goal below 140/90 08/21/2021 High serum ferritin 08/27/2020 Morbid obesity due to excess calories 04/23/2020 Thiamine deficiency 03/22/2020 Vitamin E deficiency 03/22/2020 Coronary artery disease invo lving [place] coronary artery of [place] heart without angina pectoris 11/28/2019 Overview: Cardiac [...] Mixed incontinence urge and stress 07/13/2013 Overview: Senior Sustainability Consultant 06/28: oxybutynin 09/28 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 Hypothyroidism 09/01/2010 Overview: + thyroid ab 08/15/13 Irritable bowel syndrome 09/01/2010 Nonintractable epilepsy without status epileptic us Overview: Last seizure 2011 Migraines Moderate persistent asthma without complication Overview: PFT 07/20/16: no bronchodilator response, extrathoracic airway obstruction PFT 11/2019: normal documented as of this encounter (statuses as of 10/21/2023) Resolved Problems Problem Noted Date Diagnosed Date [...] as of this encounter (statuses as of 10/21/2023) Immunizations Name Administration Dates Next Due HepA [...] attempted to quit: 08/31/2022 Smokeless Tobacco: Never Tobacco Cessation:Ready to Q uit: No; Counseling Given: No Comments:1 pack/day 03/05/22 Alcohol Use Standard Drinks/Week [...] on file documented as of this encounter Last Filed Vital Signs Vital Sign Reading Time Taken Comments Blood Pressure 142/102 10/21/2023 9:59 AM EDT Pulse 73 10/21/2023 9:59 AM EDT Temperature 36.8 C (98.3 F) 10/21/2023 9:59 AM ED T Respiratory Rate 18 10/21/2023 9:59 AM EDT Oxygen Saturation 99% 10/21/2023 9:59 AM EDT Inhaled Oxygen Concentration - - Weight 115.8 kg (255 lb 3.2 oz) 10/21/2023 9:59 AM EDT Height - - Body Mass Index 43.53 09/03/2023 2:14 PM EDT documented in this encounter Patient Instructions * Patient Instructions* Mervat Almanzar PA-C - 10/21/2023 10:37 AM EDT Restart furosemide once daily. Continue losartan 50mg daily. This may be increased to 100mg daily if needed. Monitor blood pressure at home. Nurse follow up in 2 weeks for BP check. Labs in 2 weeks. Start prednisone burst for 5 days. Start Symbicort 2 puffs 2x daily with spacer. Rinse mouth after use. Continue to use albuterol inhaler 2 puffs every 4-6 hours as needed with spacer. documented in this encounter Progress Notes * Mervat Almanzar PA-C - 10/21/2023 10:11 AM EDT Images from the original note were not included. History of Present Illness Chief Complaint Patient presents with Acute Discuss elevated blood pressure-has still been getting high readings even with being on medication Is having headaches, SOB, chest pain, dizziness, fatigue Has quit her job since last OV d/t not feeling well Brought along home BP cuff to be validated-home reading today in clinic 127/95 P 65 Pt presents for follow up HTN. BP continues to be elevated. She is having headaches, SOB, chest discomfort. She is wheezing. She is a smoker. She has tried her albuterol inhaler which helps some. Shedoes not use a spacer with her inhaler. Pt has dx of mild SHEFALI, diagnosed in 2014. She was not started on CPAP. She does snore at night. She has daytime fatigue. Current Medications: Albuterol Sulfate HFA 108 (90 Base) MCG/ACT Inhalation Aerosol Solution Budesonide-Formoterol Fumarate 160-4.5 MCG/ACT Inhalation Aerosol (Symbicort) Furosemide 20 MG Oral Tablet (Lasix) predniSONE 20 MG Oral Tablet (Deltasone) Spacer/Aero-Holding Chambers Device Losartan Potassium 50 MG Oral Tablet (Cozaar) Levothyroxine Sodium 88 MCG Oral Tablet (Levoxyl) Vitamin D3 250 MCG (54966 UT) Oral Tablet Omeprazole 20 MG Oral Capsule Delayed Release (PriLOSEC) Cetirizine HCl 10 MG Oral Tablet (ZyrTEC) Fexofenadine HCl 180 MG Oral Tablet Folic Acid 1 MG Oral Tablet Physical Exam BP 142/102 | Pulse 73 | Temp 36.8 C (98.3 F) (Tympanic) | Resp 18 | Wt 115.8 kg (255 lb 3.2 oz)| SpO2 99% | BMI 43.53 kg/m | BSA 2.29 m Physical Exam Vitals and nursing note reviewed. Constitutional: General: She is not in acute distress. Appearance: Normal appearance. She is obese. She is not ill-appearing, toxic- appearing or diaphoretic. Eyes: Extraocular Movements: Extraocular movements intact. Pupils: Pupils are equal, round, and reactive to light. Cardiovascular: Rate and Rhythm: Normal rate and regular rhythm. Heart sounds: Normal heart sounds. Pulmonary: Effort: Pulmonary effort is normal. No respiratory distress. Breath sounds: Wheezing present. No rhonchi or rales. Neurological: Mental Status: She is alert and oriented to person, place, and time. I have reviewed the following results: BMP results Recent Labs Units 09/03/23 1552 06/23/22 1658 SODIUM - [facility] mmol/L 139 142 POTASSIUM - [facility] mmol/L 4.0 4.0 CHLORIDE - [facility] mmol/L 103 107 CO2 - [facility] mmol/L 26 24 CREATININE - [facility] mg/dL 0.8 0.8 BUN - [facility] mg/dL 7 6 Lipid panel results Recent Labs Units 09/03/23 1552 CHOLESTEROL - [facility] mg/dL 167 HDL CHOLESTEROL - [facility] mg/dL 25* TRIGLYCERIDES - [facility] mg/dL 218* CBC results Recent Labs Units 09/03/23 1552 06/23/22 1658 WBC K/uL 8.48 7.75 HGB g/dL 14.6 14.5 HCT % 44.3 44.3 PLT K/uL 231 273 HbA1c results Recent Labs Units 09/03/23 1552 HEMOGLOBIN A1C - [facility] % 5.5 TSH results Recent Labs Units 09/03/23 1552 06/23/22 1658 TSH - [facility] uIU/mL 10.60* 2.14 Vitamin D results Recent Labs Units 09/03/23 1552 03/08/23 0955 25-HYDROXY VITAMIN D - [facility] ng/mL 13* <6* Hepatic panel results Recent Labs Units 09/03/23 1552 06/23/22 1658 PROTEIN - [facility] g/dL 6.2 6.1 BILIRUBIN, TOTAL - [facility] mg/dL 0.3 0.2 ALKALINE PHOSPHATASE - [facility] U/L 78 77 AST - [facility] U/L 49* 33 ALT - [facility] U/L 51* 46* Assessment and Plan Moderate persistent asthma without complication Start maintenance inhaler. Use spacer with inhaler. - Budesonide-Formoterol Fumarate 160-4.5 MCG/ACT Inhalation Aerosol (Symbicort); Inhale 2 Puffs by mouth in the morning and 2 Puffs before bedtime. - Albuterol Sulfate HFA 108 (90 Base) MCG/ACT Inhalation Aerosol Solution; Inhale 2 puffs by mouth every 4 hours as needed for asthma - Spacer/Aero-Holding Chambers Device; Use with inhaler. - predniSONE 20 MG Oral Tablet (Deltasone); Take 2 Tablets by mouth in the morning for 5 days. Mild obstructive sleep apnea Refer back to sleep medicine. Pt likely has worsening of SHEFALI. - SLEEP MEDICINE REFERRAL OP - predniSONE 20 MG Oral Tablet (Deltasone); Take 2 Tablets by mouth in the morning for 5 days. HTN, goal below 140/90 Restart furosemide. Continue losartan 50mg daily. Monitor BP at home. Double lasartan if BP does not come down. - SLEEP MEDICINE REFERRAL OP - predniSONE 20 MG Oral Tablet (Deltasone); Take 2 Tablets by mouth in the morning for 5 days. - CARDIOLOGY REFERRAL OP Lower extremity edema Restart furosemide. - Furosemide 20 MG Oral Tablet (Lasix); Take 1 Tablet by mouth in the morning. - predniSONE 20 MG Oral Tablet (Deltasone); Take 2 Tablets by mouth in the morning for 5 days. - CARDIOLOGY REFERRAL OP Moderate persistent asthma with exacerbation - predniSONE 20 MG Oral Tablet (Deltasone); Take 2 Tablets by mouth in the morning for 5 days. Coronary artery disease involving [place] coronary artery of [place] heart without angina pectoris - CARDIOLOGY REFERRAL OP Wrap-Up Return for As scheduled, Nurse BP Check in 2 Weeks. Time: I spent a total of 20-29 minutes (exact time 25 mins) on the date of service in preparation, delivery, and documentation of the care provided to Vickie Pathak excluding any time spent in the performance of separately billed services. This note was completed using the dictation program Fluency Direct. As such, there may be misspellings, word substitutions, or other variations that should not change the essence of the clinical content of this encounter note. Please direct questions to me if need for clarification arises. documented in this encounter Plan of Treatment Upcoming Encounters Date Type Department Care Team (Late st Contact Info) Description 11/04/2023 12:40 PM EDT Nurse Only Ancillary 1st Floor, [place] [address] [facility] [place] [address] [place], Nurse L[place] [address] [facility] [place] [address] 11/04/2023 3:00 PM EDT Office Visit Sleep Disorders Medicine [facility] [address] [facility] [place] [phone] Teri Posada MD [address] [place] [phone] 11/25/2023 9:00 AM EDT Appointment Cardiac Studies, [address] [address] 12/22/2023 9:40 AM EST Telemedicine Nutrition & Weight Management, [place] [address] [place] [address] Funmilayo Tabor MD [address] [place] [address] 03/09/2024 11:30 AM EST Office [address]iology, [address] [address] Steffany Gardner MD [address] [place] [address] 03/15/2024 4:40 PM EST Office Visit Family Practice, [place] [address] [phone] Mervat Almanzar PA-C [address] [address] Scheduled Procedures Name Priority Associated Diagnoses Date/Ti me COLONOSCOPY FLEXIBLE PROXIMA L DIAGNOSTIC Recall History of colonic polyps Scheduled Referrals Name Type Priority Associated Diagnoses Orde r Schedule SLEEP MEDICINE REFERRAL OP Referral Within 10 days (routine) Mild obstructive sleep apnea HTN, goal below 140/90 Ordered: 10/21/2023 CARDIOLOGY REFERRAL OP Referral Within 10 days (routine) HTN, goal below 140/90 Lower extremity edema Coronary artery disease involving [place] coronary artery of [place] heart without angina pectoris Ordered: 10/21/2023 Health Maintenance Due Date Last Done Comments HIV Screening 10/16/1990 HPV/Co-Test 10/16/2005 DISCUSS TOBACCO CESSATION (REFER TO SMARTSET #3291) 06/29/2014 06/29/2013, 10/27/2012 Cologuard 10/16/2020 Fecal Occult Blood Test 10/16/2020 Sigmoidoscopy 10/16/2020 Mammogram 11/15/2020 11/16/2019, 08/2018, 03/16/2017, Additional history exists Cervical Cancer Screening 01/25/2023 Pap Smear 01/25/2023 01/26/2020, 01/15, 06/18/2014 Depression Screening 09/17/2023 09/16/2022, 07/01/19 16 COVID-19 Vaccine ( season) 2023 Influenza Vaccine (FLU shot) (#1) 2023 12/07/2018, 11/28/2014 DTap/Tdap Vaccines (2 - Td or Tdap) 06/18/2024 [...] as of this encounter Visit Diagnoses Diagnosis Moderate persistent asthma without complication- Primary Unspecified asthma Moderate persistent asthma with exacerbation Unspecified asthma, with exacerbation Mild obstructive sleep apnea Obstructive sleep apnea (adult) (pediatric) HTN, goal below 140/90 Unspecified essential hypertension Lower extremity edema Edema Coronary artery disease involving [place] coronary artery of [place] heart without angina pectoris documented in this encounter Advance Directives * [...] Power of Attor yas? No Care Teams Spooler Rubber Strand Relationship Specialty Start Date End Date Mervat Almanzar PA-C [address] [address] PCP - General Physician Pneumatic Drum Sander 09/16/22 documented as of this encounter"
--- OUTSIDE RECORDS SUMMARY | 2023-10-23 19:10 | External Medical Summary | Summary of Care ---
Author Name Unknown Organization [facility] Address [address] [facility] [place] [address] Phone [phone] Care Team Providers Care Extrusion Former Name Role Phone Houston Almanzar PA-C Primary Care Provider [phone] Reason for Visit * Reason Onset Date Comments Other 09/17/2023 BP check Encounter Details Date Type Department Care Team (Late st Contact Info) Description 09/17/2023 Telephone [facility] [address] [phone] Houston Almanzar PA-C [address] [address] Other (BP check) Allergies Active Allergy Reactions Criticality Noted Date Comments Rosuvastatin Low 06/23/2022 Joint pain documented as of this encounter (statuses as of 09/17/2023) Medications Medication Sig Dispensed Refills Start Date [...] 3 09/06/2023 Active Vitamin D3 250 MCG (84278 UT) Oral TabletIndications:V itamin D deficiency Take 1 Tablet by mouth every evening. 90 Tablet 3 09/06/2023 Active Losartan Potassium 50 MG Oral Tablet (Cozaar)Indications :HTN, goal below 140/90 Take 1 Tablet by mouth in the morning. 30 Tablet 5 09/17/2023 Active Losartan Potassium 25 MG Oral Tablet (Cozaar)Indications :HTN, goal below 140/90 Take 1 Tablet by mouth in the morning. 30 Tablet 5 09/03/2023 Discontinu ed(Refill) documented as of this encounter (statuses as of 09/17/2023) Active Problems Problem Noted Date Diagnosed Date Wears dentures 06/24/2022 Myelopathy 08/21/2021 HTN, goal below 140/90 08/21/2021 High serum ferritin 08/27/2020 Morbid obesity due to excess calories 04/23/2020 Thiamine deficiency 03/22/2020 Vitamin E deficiency 03/22/2020 Coronary artery disease invo lving [place] coronary artery of [place] heart without angina pectoris 11/28/2019 Overview: Cardiac [...] Mixed incontinence urge and stress 07/13/2013 Overview: Activities Leader 06/28: oxybutynin 09/28 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 Hypothyroidism 09/01/2010 Overview: + thyroid ab 08/15/13 Irritable bowel syndrome 09/01/2010 Nonintractable epilepsy without status epileptic us Overview: Last seizure 2011 Migraines Intermittent asthma with rel iever use up to twice per week without complication Overview: PFT 07/20/16: no bronchodilator response, extrathoracic airway obstruction PFT 11/2019: normal documented as of this encounter (statuses as of 09/17/2023) Resolved Problems Problem Noted Date Diagnosed Date [...] as of this encounter (statuses as of 09/17/2023) Immunizations Name Administration Dates Next Due HepA [...] on file documented as of this encounter Miscellaneous Notes * Telephone Encounter - Silverio Sommers LPN - 09/17/2023 3:59 PM EDT Patient has been informed of below message and verbalized understanding. Pt is not able to get in for echo until 11/25/2023. Pt is on wait list for a sooner appt. Asking if PCP has further recommendations. Please advise. * Addendum Note - Houston Almanzar PA-C - 09/17/2023 3:34 PM EDTAddended by: HOUSTON ALMANZAR on: 09/17/2023 03:34 PM Modules accepted: Orders * Telephone Encounter - Houston Almanzar PA-C - 09/17/2023 3:32 PM EDT Recommend to increase losartan to 50mg daily. New rx sent to pharmacy. * Telephone Encounter - Maria L [facility] MED ASSIST - 09/17/2023 3:13 PM EDT Vickie Siegel Lawson presented for blood pressure check per provider orders. The blood pressure was obtained using the left arm in the sitting position using a adult large cuff. The results were charted in Vital Signs. BP Readings from Last 3 Encounters: 09/17/23 126/100 09/03/23 171/106 03/08/23 118/62 Initial BP 132/100 after resting BP was BP 126/100 | Pulse 62 | SpO2 100% Patient complains of dizziness. Did patient take medications today? No, takes in the PM Patient was instructed to follow-up as per their next scheduled appt PT complains of dizziness at times states yesterday dizziness was worse and family told her her eyes were twitching, states today feeling better. documented in this encounter Plan of Treatment Upcoming Encounters Date Type Department Care Team (Late st Contact Info) Description 11/25/2023 9:00 AM EDT Appointment Cardiac Studies, [facility] [address] [place] [address] 12/22/2023 9:40 AM EST Telemedicine Nutrition & Weight Management, [place] [address] [place] [address] Funmilayo Tabor MD [address] [place] [address] 03/15/2024 4:40 PM EST Office Visit [facility] [address] [place] [phone] Houston Almanzar PA-C [address] [place] [address] Scheduled Procedures Name Priority Associated Diagnoses Date/Ti me COLONOSCOPY FLEXIBLE PROXIMA L DIAGNOSTIC Recall History of colonic polyps Health Maintenance Due Date Last Done Comments [...] as of this encounter Visit Diagnoses Diagnosis HTN, goal below 140/90 Unspecified essential hypertension documented in this encounter Advance Directives * [...] Power of Attor yas? No Care Teams Extrusion Former Relationship Specialty Start Date End Date Houston Almanzar PA-C [address] [address] PCP - General Physician Associate Store Leader 09/16/22 documented as of this encounter"
--- OUTSIDE RECORDS SUMMARY | 2023-10-23 19:11 | External Medical Summary ---
Author Name Unknown Address Unknown Organization K01:[facility] – [place] - [address] [place] [address] Laboratory Report Ordering Provider Test Date Status MYA CONRAD 09/03/2023 15:52:36 Final Observation Date Value Abnormality Reference (Units ) Status Triglyceride 09/03/2023 15:52:36 218 Above high normal <=174 (mg/dL) Final Triglyceride Reference Range s (mg/dL):
<150 Acceptable
150-174 Borderline high
175-499 High
>=500 Very high Cholesterol 09/03/2023 15:52:36 167 <200 (mg /dL) Final Total Cholesterol Reference Ranges (mg/dL):
<200 Desirable
200-239 Borderline high
>=240 High HDL 09/03/2023 15:52:36 25 Below low normal >49 (mg/dL) Final HDL Cholesterol Reference Ra nges (mg/dL):
>=60 High (Desirable)
<50 Low (Undesirable) For Females
<40 Low (Undesirable) For Males NON-HDL CHOLESTEROL 09/03/2023 15:52:36 142 <=159 (mg/dL) Final Non-HDL Cholesterol Referenc e Range (mg/dL):
<100 Target level for high risk ASCVD patient
<130 Optimal for general population
130-159 Near optimal for general population
160-189 Borderline High
190-219 High
>=220 Very High Performing Location [facility] - [address] [place] [address]
--- OUTSIDE RECORDS SUMMARY | 2023-10-23 19:11 | External Medical Summary | Summary of Care ---
Author Name Unknown Organization [facility] Address [address] [facility] [place] [address] Phone [phone] Care Team Providers Care Division Order Analyst Name Role Phone Houston Almanzar PA-C Primary Care Provider [phone] Reason for Visit * Reason Onset Date Comments Other 09/17/2023 BP check Encounter Details Date Type Department Care Team (Late st Contact Info) Description 09/17/2023 Telephone [facility] [place] [address] [place] [phone] Houston Almanzar PA-C 21 [employer] [place] [address] Other (BP check) [...] 3 09/06/2023 Active Vitamin D3 250 MCG (14998 UT) Oral TabletIndications:V itamin D deficiency Take [...] deficiency 03/22/2020 Coronary artery disease invo lving [place] coronary artery of [place] heart without angina pectoris 11/28/2019 Overview: Cardiac [...] Mixed incontinence urge and stress 07/13/2013 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 New rx sent to pharmacy. * Telephone Encounter - Maria L Bee MED ASSIST - 09/17/2023 3:13 PM EDT [...] 11/25/2023 9:00 AM EDT Appointment Cardiac Studies, [facility] [address] [place] [address] 12/22/2023 9:40 AM EST Telemedicine Nutrition & Weight Management, [place] [address] [facility] [address] Funmilayo Tabor MD [address] [place] [address] 03/15/2024 4:40 PM EST Office Visit [facility] [place] [facility] [phone] Houston Almanzar PA-C 21 [facility] [place] [address] Scheduled Procedures Name Priority Associated Diagnoses Date/Ti me COLONOSCOPY FLEXIBLE PROXIMA L DIAGNOSTIC Recall History of colonic polyps Health Maintenance Due Date Last Done Comments HIV Screening 10/16/1990 HPV/Co-Test 10/16/2005 DISCUSS TOBACCO CESSATION (REFER TO SMARTSET #5624) 06/29/2014 06/29/2013, 10/27/2012 Cologuard 10/16/2020 Fecal Occult Blood Test 10/16/2020 Sigmoidoscopy 10/16/2020 Mammogram 11/15/2020 11/16/2019, 0508/2018, 03/16/2017, Additional history exists COVID-19 Vaccine ( season) 2022 Cervical Cancer Screening 01/25/2023 Pap Smear 01/25/2023 01/26/2020, 01/15, 06/18/2014 Depression Screening 09/17/2023 09/16/2022, 07/01/19 16 Influenza Vaccine (FLU shot) (#1) 2023 12/07/2018, [...] Power of Attor yas? 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
--- OUTSIDE RECORDS SUMMARY | 2023-10-23 19:11 | External Medical Summary ---
Author Name Unknown Address Unknown Organization K01:LABORATORY [facility] - [address] [facility] [facility] [address] Laboratory Report Ordering Provider Test Date Status MYA CONRAD 09/03/2023 15:52:36 Final Observation Date Value Abnormality Reference (Units ) Status TSH 09/03/2023 15:52:36 10.60 Above high normal 0. 27-4.20 (uIU/mL) Final Performing Location LABORATORY [facility] - [address] [facility] [address]
--- OUTSIDE RECORDS SUMMARY | 2023-10-23 19:11 | External Medical Summary ---
Author Name Unknown Address Unknown Organization K01:LABORATORY [facility] [place] - [address] [place] [address] [place] [address] Laboratory Report Ordering Provider Test Date Status [place] 09/03/2023 15:52:36 Final Observation Date Value Abnormality Reference (Units ) Status Iron 09/03/2023 15:52:36 87 33-151 (ug/dL) Final Iron-binding capacity 09/03/2023 15:52:36 246 Below low normal 250-425 (ug/dL) Final Transferrin Sat % 09/03/2023 15:52:36 35 15-55 (%) Final Performing Location LAB[facility]ATORY [facility] - [address] [place] [address]
--- OUTSIDE RECORDS SUMMARY | 2023-10-23 19:11 | External Medical Summary ---
Author Name Unknown Address Unknown Organization : Laboratory Report Ordering Provider Test Date Status MYA CONRAD 09/03/2023 15:52:36 Final Observation Date Value Abnormality Reference (Units ) Status Zinc, level 09/03/2023 15:52:36 57 Below low normal 6 0-130 (mcg/dL) Final This test was developed and its analytical performance
characteristics have been determined by [facility]
[place], [place]. It has
not been cleared or approved by the U.S. Food and Drug
Administration. This assay has been validated pursuant
to the CLIA regulations and is used for clinical
purposes.

Test Performed at:
[facility]
[address] [place] [address]
Igor Awan M.D., Ph.D.,Director of Laboratories Performing Location
--- OUTSIDE RECORDS SUMMARY | 2023-10-23 19:11 | External Medical Summary | Summary of Care ---
Author Name Unknown Organization [facility] Address [address] [facility] [place] [address] Phone [phone] Care Team Providers Care Pocketbook Maker Name Role Phone Mervat Almanzar PA-C Primary Care Provider [phone] Reason for Visit * Reason Onset Date Comments Blood Pressure Check 09/17/2023 Encounter Details Date Type Department Care Team (Late st Contact Info) Description 09/17/2023 2:40 PM EDT Nurse Only Ancillary 1st Floor, [place] [address] [facility] [place] [address] [place], Nurse Fp 21 [facility] [place] [phone] Blood Pressure Check Allergies Active Allergy Reactions Criticality Noted Date Comments Rosuvastatin Low 06/23/2022 Joint pain documented as of this encounter (statuses as of 09/17/2023) Medications Medication Sig Dispensed Refills Start Date End Date Status Fexofenadine HCl 180 MG Oral Tablet Take 1 Tablet by mouth in the morning. Active Sulindac 200 MG Oral TabletIndications:De generation of lumbosacral intervertebral disc Take 1 Tablet by mouth in the morning and 1 Tablet before bedtime. With food. 60 Tablet 11 04/23/2022 Active Additional Information Patient not taking.Reported on 03/08/2023 Cetirizine HCl 10 MG Oral Tablet (ZyrTEC) Take 1 Tablet by mouth in the morning. Active Folic Acid 1 MG Oral TabletIndications:Fo lic acid deficiency Take 1 Tablet by mouth in the morning. 90 Tablet 2 06/24/2022 Active Additional Information Patient not taking.Reported on 03/08/2023 Nicotine Polacrilex 4 MG Mouth/Throat Lozenge (Nicorette) Apply to the mouth or throat. Active Furosemide 20 MG Oral Tablet (Lasix)Indications:L ower extremity edema Take 1 Tablet by mouth daily as needed (swelling). TAKE ONE TABLET BY MOUTH EVERY MORNING NEEDED FOR SWELLING OF LOWER EXREMITIES 30 Tablet 2 09/16/2022 Active Additional Information Patient not taking.Reported on 09/17/2023 Albuterol Sulfate HFA 108 (90 Base) MCG/ACT Inhalation Aerosol SolutionIndications: Mild intermittent asthma with exacerbation 2 puffs every 4 hours as needed for asthma 18 g 1 09/16/2022 Active Omeprazole 20 MG Oral Capsule Delayed Release (PriLOSEC)Indication s:Laryngopharyngeal reflux Take 1 Capsule by mouth in the morning. 90 Capsule 3 09/16/2022 Active Losartan Potassium 25 MG Oral Tablet (Cozaar)Indications: HTN, goal below 140/90 Take 1 Tablet by mouth in the morning. 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 90 Tablet 3 09/06/2023 Active Vitamin D3 250 MCG (43896 UT) Oral TabletIndications:Vi tamin D deficiency Take 1 Tablet by mouth every evening. 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 Never true 04/24/19 Within the past 12 months, t he [...] Sign Reading Time Taken Comments Blood Pressure 126/100 09/17/2023 2:59 PM EDT Pulse 62 09/17/2023 2:35 PM EDT Temperature - - Respiratory Rate - - Oxygen Saturation 100% 09/17/2023 2:35 PM EDT Inhaled Oxygen Concentration - - Weight - - Height - - Body Mass Index - - documented in this encounter Progress Notes * Maria L Bee MED ASSIST - 09/17/2023 3:07 PM EDT Vickie Pathak presented for blood pressure check per provider [...] 11/25/2023 9:00 AM EDT Appointment Cardiac Studies, [address] [place] [address] 12/22/2023 9:40 AM EST Telemedicine Nutrition & Weight Management, [place] [address] [place] [address] Funmilayo Tabor MD [address] [place] [address] 03/15/2024 4:40 PM EST Office Visit [facility], [place] [address] [place] [phone] Mervat Almanzar PA-C [address] [place] [address] Scheduled Procedures Name Priority Associated Diagnoses Date/Ti me COLONOSCOPY FLEXIBLE PROXIMA L DIAGNOSTIC Recall History of colonic polyps Health Maintenance Due Date Last Done Comments HIV Screening 10/16/1990 HPV/Co-Test 10/16/2005 DISCUSS TOBACCO CESSATION (REFER TO SMARTSET #3291) 06/29/2014 06/29/2013, 10/27/2012 Cologuard 10/16/2020 Fecal Occult Blood Test 10/16/2020 Sigmoidoscopy 10/16/2020 Mammogram 11/15/2020 11/16/2019, 05/0 08/2018, 03/16/2017, Additional history exists COVID-19 Vaccine (2022- season) 2022 Cervical Cancer Screening 01/25/2023 Pap [...] Not on filedocumented as of this encounter Procedures Procedure Name Priority Date/Time Associated Diagnosis Comments BLOOD PRESSURE Routine 09/17/2023 3:11 PM EDT HTN, goal below 140/90 documented in this encounter Results * BLOOD PRESSURE (09/17/2023 3:11 PM EDT) 09/17/2023 3:11 PM EDT Narrative Maria L Bee, MED ASSIST - 09/17/2023 3:12 PM EDT Vickie Pathak presented for blood pressure check per provider [...] eyes were twitching, states today feeling better. Mervat Almanzar PA-C MEDICAL SERVICES documented in this encounter Visit Diagnoses Diagnosis HTN, goal below 140/90- Primary Unspecified essential hypertension documented in this encounter [...] Power of Attor yas? No Care Teams Pocketbook Maker Relationship Specialty Start Date End Date Mervat Almanzar PA-C [address] [place] [address] PCP - General Physician Clinical Rehab Liaison 09/16/22 documented as of this encounter"
--- OUTSIDE RECORDS SUMMARY | 2023-10-23 19:11 | External Medical Summary | Summary of Care ---
Author Name Unknown Organization [facility] Address [address] [facility] [place] [address] Phone [phone] Care Team Providers Care Vp Marketing Name Role Phone Mervat Almanzar PA-C Primary Care Provider [phone] Reason for Referral * Precert (Within 10 days (routine)) - Pending Review Specialty Diagnoses / Procedures Referred By Contac t Referred To Contact Cardiac Studies Diagnoses HTN, goal below 140/90 Lower leg edema Procedures ECHO, COMPLETE (2D), TRANS-THORACIC Mervat Almanzar PA-C [address] [facility] [place] [address] Referral ID Status Reason Start Date Expiration Date Visits Requested Visits Authorized [id number] Pending Review Precert 09/03/[phone] * Evaluate & Treat - Unlimited Visits (Within 10 days (routine)) - Pending Review Specialty Diagnoses / Procedures Referred By Contact Referred To Contact GI NUTRITION/IM / Gastroenterology Diagnoses Morbid obesity due to excess calories (HCC) Mervat Almanzar [place] [address] Referral ID Status Reason Start Date Expiration Date Visits Requested Visits Authorized [id number] Pending Review Specialty Services Required 09/03/2023 999 999 Question Answer Referral Priority Within 10 days (routine) Where should this appointment be scheduled? [facility] For what condition is the patient being seen? Obesity * Evaluate & Treat - Unlimited Visits (Within 30 days (routine)) - Pending Review Specialty Diagnoses / Procedures Referred By Lena rivas Referred To Contact Obstetrics/Gynecology / Gynecology Obstetrics Diagnoses Screening for cervical cancer Mervat Almanzar PA-C [address] [address] Referral ID Status Reason Start Date Expiration Date Visits Requested Visits Authorized [id number] Pending Review Specialty Services Required 09/03/2023 1 1 Question Answer What condition is the patient being seen for? Annual Wellness Referral Priority Within 30 days (routine) Where should this appointment be scheduled? 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 90 Tablet 1 03/05/2022 Discontinu ed(Refill) documented as of this encounter (statuses as of 09/16/2023) Active Problems Problem Noted Date Diagnosed Date Wears dentures 06/24/2022 Myelopathy 08/21/2021 HTN, goal below 140/90 08/21/2021 High serum ferritin 08/27/2020 Morbid obesity due to excess calories 04/23/2020 Thiamine deficiency 03/22/2020 Vitamin E deficiency 03/22/2020 Coronary artery disease invo lving galena coronary artery of galena heart without angina pectoris 11/28/2019 Overview: Cardiac [...] Mixed incontinence urge and stress 07/13/2013 Overview: Underliner 06/28: oxybutynin 09/28 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 Hypothyroidism 09/01/2010 Overview: + thyroid ab 08/15/13 Irritable bowel syndrome 09/01/2010 Nonintractable epilepsy without status epileptic us Overview: Last seizure 2011 Migraines Intermittent asthma with rel iever use up to twice per week without complication Overview: PFT 07/20/16: no bronchodilator response, extrathoracic airway obstruction PFT 11/2019: normal documented as of this encounter (statuses as of 09/16/2023) Resolved Problems Problem Noted Date Diagnosed Date [...] as of this encounter (statuses as of 09/16/2023) Immunizations Name Administration Dates Next Due HepA [...] Cessation:Ready to Q uit: No; Counseling Given: Not Answered Comments:1 pack/day 03/05/22 Alcohol Use Standard Drinks/Week [...] Sign Reading Time Taken Comments Blood Pressure 171/106 09/03/2023 2:14 PM EDT automatic cuff Pulse 64 09/03/2023 2:14 PM EDT Temperature 36.7 C (98.1 F) 09/03/2023 2 :14 PM EDT Respiratory Rate 20 09/03/2023 2:14 PM EDT Oxygen Saturation 100% 09/03/2023 2:1 4 PM EDT Inhaled Oxygen Concentration - - Weight 119.6 kg (263 lb 9.6 oz) 09/03/2023 2:14 PM EDT Height 163.1 cm (5' 4.2") 09/03/2023 2: 14 PM EDT Body Mass Index 44.97 09/03/2023 2:14 PM EDT documented in this encounter Patient Instructions * Patient Instructions* Mervat Almanzar PA-C - 09/03/2023 2:22 PM EDT Start losartan once daily. Eat at least 2 meals daily. Stress protein and whole foods. Start a high quality multivitamin /multimineral. Healthy Eating Habits Recommend high protein diet, whole food diet. Prioritize protein. Aim for 1 to 2g per kg of ideal body weight of protein consumption daily. Ex. One large egg contains about 6g of protein; one oz of almonds contains 6g; about 1/2 chicken breast (86g) contains 27g; one cup of cottage cheese contains 28g, 7 oz of macedonian yogurt contains about 20g. Increase nonstarchy vegetables to 4 to 6 servings daily. Do not skip your vegetables. Eat a rainbowof colorful vegetables. Vegetables are rich in potassium, magnesium, calcium, vitamin C, and fiber.Try to get 1 to 2 servings of cruciferous vegetables daily (ex. broccoli, cauliflower, Cable sprouts, kale, cabbage) for their many health benefits. Eat 4 to 6 servings of a variety of nuts and seeds daily. Nuts and seeds a great source of vitamin E and minerals like magnesium. Including 2 to 4 [place] nuts a few days a week will increase your selenium intake. Eat only organic or "pasture raised" meats and limit portions/servings. Eat meat only once daily. Include free range eggs, whole fat dairy, and low mercury fatty fish like salmon and sardines in yourdiet. Eggs are a great source of B vitamins, dairy calcium, and fatty fish omega-3 fatty acids and vitamin D. Avoid all processed foods including processed meats. Use only extra virgin olive oil, avocado oil, coconut oil, or real butter in your kitchen. Avoid all oils grouped under the category of vegetable oils. These include soybean, corn, canola, vegetable,sunflower seed, cottonseed, safflower seed oils. Avoid margarine. Note: Restaurants and food manufactures will use vegetable oils in their foods/products. Adding nutritional yeast to foods will increase B vitamins in your diet. When reducing carbohydrates, you make risk reducing micronutrients in your diet if you are not careful because may carbohydrate foods are fortified with vitamins. Thus, it is imperative to eat a variety of whole foods and to follow closely the recommendations above. I recommend tracking your diet for 3 weeks to help you hit these targets on carbohydrates. I recommend the nuvia called Rezzie for tracking diet. Under settings adjust macronutrient ratios to 60% fat, 30% protein, and 10% carbohydrates. Consider intermittent fasting. Ex. Try time restricted eating by not eating between 7pm and 10AM or12pm. Drink water and stay hydrated during your time fasting. Caution as this may result in hypoglycemia if you are a diabetic or history of hypoglycemia. Mammography Mammography is an X-ray exam of your breast tissue. The image it makes is called a mammogram. A mammogram can help find problems with your breasts, such as cysts or cancer. Mammography is the best breast cancer screening tool available. Have screening mammograms and professional breast exams as often as your healthcare provider recommends. Also, be sure you know how your breasts normally look and feel. This makes it easier to noticeany changes. Report changes to your healthcare provider as soon as possible. How do I get ready for a mammogram? Schedule the test for 1 week after your period. Your breasts are less sore then. Make sure your clinic gets images of your last mammogram if it was done somewhere else. This lets the provider compare the 2 sets of images for any changes. On the morning of your test, dont use deodorant, powder, or perfume. Wear a top that you can take off easily. What happens during a mammogram? You will need to undress from the waist up. The technologist will position your breast to get the best test results. Each of your breasts will be compressed one at a time. This helps get the most complete X-ray image. Your breasts will be repositioned to get at least 2 separate views of each breast. What happens after a mammogram? More X-rays are sometimes needed. If not done at the time of your initial mammogram, youll be called to schedule them. You should receive your test results in writing. Ask about this on the day of your appointment. Have mammograms as often as your healthcare provider recommends. Let the technologist know if: Youre or think you may be You have breast implants You have any scars or moles on or near your breasts Youve had a breast biopsy or surgery Youre Date Last Reviewed: 07/16/201619991647-7414 [employer]. [address] [place] [address]. All rights reserved. This information is not intended as a substitute for professional medical care. Always follow your healthcare professional's instructions documented in this encounter Progress Notes * Mervat Almanzar PA-C - 09/03/2023 2:32 PM EDT Images from the original note were not included. History of Present Illness Chief Complaint Patient presents with Acute B/L lower leg edema Pt presents complaining of bilateral lower leg edema which is chronic, but progressively getting worse. She has been sitting most of the day for work. She is taking Lasix. Prior diagnosis of venous insufficiency. Pt denies CP. She has noticed maybe some SOB with exertion. Complaining of bad muscle cramps all over, not just her legs. She continues to have numbness in legs and feet. At night feet hurt bad. Current Medications: Losartan Potassium 25 MG Oral Tablet (Cozaar) Albuterol Sulfate HFA 108 (90 Base) MCG/ACT Inhalation Aerosol Solution Furosemide 20 MG Oral Tablet (Lasix) Omeprazole 20 MG Oral Capsule Delayed Release (PriLOSEC) Fexofenadine HCl 180 MG Oral Tablet Levothyroxine Sodium 88 MCG Oral Tablet (Levoxyl) Vitamin D3 250 MCG (83586 UT) Oral Tablet Nicotine Polacrilex 4 MG Mouth/Throat Lozenge (Nicorette) Folic Acid 1 MG Oral Tablet Cetirizine HCl 10 MG Oral Tablet (ZyrTEC) Sulindac 200 MG Oral Tablet Physical Exam BP 171/106 Comment: automatic cuff | Pulse 64 | Temp 36.7 C (98.1 F) (Tympanic) | Resp 20 | Ht 1.631 m (5' 4.2") | Wt 119.6 kg (263 lb 9.6 oz) | SpO2 100% | BMI 44.97 kg/m | BSA 2.33 m Physical Exam Vitals and nursing note reviewed. Constitutional: General: She is not in acute distress. Appearance: Normal appearance. She is not ill-appearing, toxic-appearing or diaphoretic. Cardiovascular: Rate and Rhythm: Normal rate and regular rhythm. Heart sounds: Normal heart sounds. Pulmonary: Effort: Pulmonary effort is normal. Breath sounds: Normal breath sounds. Musculoskeletal: Cervical back: Normal range of motion. Right lower leg: Edema present. Left lower leg: Edema present. Neurological: Mental Status: She is alert and oriented to person, place, and time. Psychiatric: Mood and Affect: Mood normal. 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 Pt is not on statin. Check lipids. HTN, goal below 140/90 Start losartan. Check echo. - ECHO, COMPLETE (2D), TRANS-THORACIC; Future - EKG; Future - Losartan Potassium 25 MG Oral Tablet (Cozaar); Take 1 Tablet by mouth in the morning. 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 Pt not taking levothyroxine. Check labs. Morbid obesity due to excess calories (HCC) - GI NUTRITION REFERRAL OP Venous insufficiency Compression stockings. - DURABLE MEDICAL EQUIPMENT Lower leg edema - DURABLE MEDICAL EQUIPMENT - ECHO, COMPLETE (2D), TRANS-THORACIC; Future - EKG; Future Encounter for screening mammogram for malignant neoplasm of breast - MAMMOGRAM SCREENING ANANDA BILATERAL; Future Screening for cervical cancer - RADIO COMMUNICATIONS SUPERINTENDENT REFERRAL OP Wrap-Up Return in about 3 months (around 12/04/2023) for follow up, nurse BP Check in 2 Weeks. Time: I spent a total of 20-29 minutes (exact time 22 mins) on the date of service in [...] for clarification arises. documented in this encounter Nursing Notes * Jazlyn Narvaez PBT - 09/03/2023 2:09 PM EDT Chief Complaint Patient presents with Acute B/L lower leg edema Worsening over the past couple months. Patient has been out of all meds for past year. documented in this encounter Plan of Treatment Upcoming Encounters Date Type Department Care Team (Late st Contact Info) Description 09/17/2023 9:20 AM EDT Telemedicine Hepatology, [address] [address] Delmar Morin MD [facility] [place] [address] 09/17/2023 2:40 PM EDT Nurse Only Ancillary 1st Floor, [address] [address] [place], Nurse [address] [place] [address] 11/25/2023 9:00 AM EDT Appointment Cardiac Studies, [address] [address] 12/22/2023 9:40 AM EST Telemedicine Nutrition & Weight Management, [place] [address] [place] [address] Funmilayo Tabor MD [facility] [place] [address] 03/15/2024 4:40 PM EST Office Visit [facility], [place] [address] [phone] Mervat Almanzar PA-C [address] [place] [address] Scheduled Orders Name Type Priority Associated Diagnoses Orde r Schedule MAMMOGRAM SCREENING ANANDA BILATERAL Medical Imaging Routine Encounter for screening mammogram for malignant neoplasm of breast Expected: 09/03/2023, Expires: 10/03/2024 ECHO, COMPLETE (2D), TRANS-THORACIC Echocardiology Routine HTN, goal below 140/90 Lower leg edema Expected: 09/03/2023 (Approximate), Expires: 09/02/2024 Scheduled Procedures Name Priority Associated Diagnoses Date/Ti me COLONOSCOPY FLEXIBLE PROXIMA L DIAGNOSTIC Recall History of colonic polyps Scheduled Referrals Name Type Priority Associated Diagnoses Orde r Schedule RADIO COMMUNICATIONS SUPERINTENDENT REFERRAL OP Referral Within 30 days (routine) Screening for cervical cancer Ordered: 09/03/2023 GI NUTRITION REFERRAL OP Referral Within 10 days (routine) Morbid obesity due to excess calories (HCC) Ordered: 09/03/2023 Health Maintenance Due Date Last Done Comments [...] Not on filedocumented as of this encounter Results * EKG (09/03/2023 3:15 PM EDT) 09/03/2023 3:15 PM EDT Narrative Procedure Note Leslye Lujan DO - 09/03/2023 3:15 PM EDT REASON FOR STUDY: edema;edema CONCLUSIONS: Sinus bradycardia Right bundle branch block Abnormal ECG When compared with ECG of 17-Sep-2021 08:35, Right bundle branch block is now Present Ventricular Rate: 58 Atrial Rate: 58 NE Interval: 164 QRS Duration: 132 QT/QTc: 484/475 ms P-R-T [place]: 42 : 93 : 41 degrees Mervat Almanzar PA-C EKG [facility] documented in this encounter Visit Diagnoses Diagnosis 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 No Care Teams Vp Marketing Relationship Specialty Start Date End Date Mervat Almanzar PA-C [address] [place] [address] PCP - General Physician Alternative Dispute Resolution Mediator 09/16/22 documented as of this encounter
--- OUTSIDE RECORDS SUMMARY | 2023-10-23 19:11 | External Medical Summary | Summary of Care ---
Author Name Unknown Organization [facility] Address [address] [facility] [place] [address] Phone [phone] Care Team Providers Care Unix System Administrator Name Role Phone Mervat Almanzar PA-C Primary Care Provider [phone] Reason for Referral * Evaluate & Treat - Unlimited Visits (Within 30 days (routine)) - Pending Review Specialty Diagnoses / Procedures Referred By Lena rivas Referred To Contact Gastroenterology Diagnoses Hepatic steatosis High serum ferritin Elevated liver enzymes Mervat Almanzar PA-C 21 [employer] [place] [address] Referral ID Status Reason Start Date Expiration Date Visits Requested Visits Authorized [id number] Pending Review Specialty Services Required 09/06/[phone] Question Answer Referral Priority Within 30 days (routine) Where should this appointment be scheduled? [facility] For what condition is the patient being referred? Liver conditions Reason for Visit * Reason Onset Date Comments Test Results 09/06/2023 Blood work Encounter Details Date Type Department Care Team (Late st Contact Info) Description 09/06/2023 Telephone Osito Carbone [address] [place] [phone] Mervat Almanzar PA-C 21 [employer] [phone] Test Results (Blood work) Allergies Active Allergy Reactions Criticality Noted Date Comments Rosuvastatin Low 06/23/2022 Joint pain documented as of this encounter (statuses as of 09/06/2023) Medications Medication Sig Dispensed Refills Start Date [...] 3 09/06/2023 Active Vitamin D3 250 MCG (537[address] UT) Oral TabletIndications:V itamin D deficiency Take 1 Tablet by mouth every evening. 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 90 Tablet 1 03/05/2022 4 Discontinu ed(Refill) documented as of this encounter (statuses as of 09/06/2023) Active Problems Problem Noted Date Diagnosed Date Wears dentures 06/24/2022 Myelopathy 08/21/2021 HTN, goal below 140/90 08/21/2021 High serum ferritin 08/27/2020 Morbid obesity due to excess calories 04/23/2020 Thiamine deficiency 03/22/2020 Vitamin E deficiency 03/22/2020 Coronary artery disease invo lving [place] coronary artery of [place] heart without angina pectoris 11/28/2019 [...] Mixed incontinence urge and stress 07/13/2013 Overview: Blaster Helper 06/28: oxybutynin 09/28 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 Hypothyroidism 09/01/2010 Overview: + thyroid ab 08/15/13 Irritable bowel syndrome 09/01/2010 Nonintractable epilepsy without status epileptic us Overview: Last seizure 2011 Migraines Intermittent asthma with rel iever use up to twice per week without complication Overview: PFT 07/20/16: no bronchodilator response, extrathoracic airway obstruction PFT 11/2019: normal documented as of this encounter (statuses as of 09/06/2023) Resolved Problems Problem Noted Date Diagnosed Date [...] as of this encounter (statuses as of 09/06/2023) Immunizations Name Administration Dates Next Due HepA [...] encounter Miscellaneous Notes * Telephone Encounter - Kym Bee, SHEFALI - 09/06/2023 12:31 PM EDT Who is Requesting Test Results: Vickie Primary Care Provider : Mervat Almanzar PA-C Tests Results Requested : blood work Date of Test : 09/03/23 Location of Test: Ordering Provider: Mervat Almanzar Patient has been made aware that the turnaround time for test results are typically as follows: Laboratory results = within 2-3 days ([facility]), 3-5 days (Non-[facility], ie. [facility]) Urine Cultures = within 2-3 days depending on growth within the culture Pathology results (biopsy results/PAP) = 1-2 weeks Radiology results = about 1 week Cologuard results = within 2 weeks from the shipment date COVID testing = about 24 hours documented in this encounter Plan of Treatment Upcoming Encounters Date Type Department Care Team (Late st Contact Info) Description 09/17/2023 2:40 PM EDT Nurse Only Ancillary 1st Floor, [place] [address] [address] [place], Nurse [facility] [address] [place] [address] 11/25/2023 9:00 AM EDT Appointment Cardiac Studies, [address] [place] [address] 12/22/2023 9:40 AM EST Telemedicine Nutrition & Weight Management, [place] [address] [place] [address] Funmilayo Tabor MD [address] [place], [place] [id number] 03/15/2024 4:40 PM EST Office Visit Family [facility], [place] [address] [place] [phone] Mervat Almanzar PA-C [facility] [address] Scheduled Orders Name Type Priority Associated Diagnoses Orde r Schedule COMPREHENSIVE METABOLIC PANEL Lab Routine Hepatic steatosis HTN, goal below 140/90 Expected: 11/07/2023 (Approximate), Expires: 09/05/2024 TSH WITH FREE T4 IF INDICATED Lab Routine 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 Expected: 11/07/2023 (Approximate), Expires: 09/05/2024 25-HYDROXY VITAMIN D Lab Routine Vitamin D deficiency Expected: 11/07/2023 (Approximate), Expires: 09/05/2024 Scheduled Procedures Name Priority Associated Diagnoses Date/Ti [...] 01/25/2023 Pap Smear 01/25/2023 01/26/2020, 01/15, 06/18/2014 *SPIROMETRY ONCE FOR ASTHMA-ADULT 08/29/2023 Depression Screening 09/17/2023 09/16/2022, 07/01/19 16 Influenza [...] Completed 09/30/2020, 08/27/2020, 09/04/2011, Additional history exists *BASELINE EKG FOR HTN Completed 09/03/2023 , 09/17/2021, 08/16/2021, Additional history exists HPV (Gardasil) Vaccine Aged Out No lo nger eligible based on patient's age to complete this topic MENINGOCOCCAL (MENACTRA/MENVEO) Aged Out No longer eligible based on patient's age to complete this topic documented as of this encounter Medical Devices Not on filedocumented as of this encounter Visit Diagnoses Diagnosis Hepatic steatosis- Primary 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 No Care Teams Unix System Administrator Relationship Specialty Start Date End Date Mervat Almanzar PA-C [address] [address] PCP - General Physician Reimbursement Rep 09/16/22 documented as of this encounter
--- OUTSIDE RECORDS SUMMARY | 2023-10-23 19:11 | External Medical Summary ---
Author Name Unknown Address Unknown Organization K[facility] - [address] [place] [address] Laboratory Report Ordering Provider Test Date Status MYA CONRAD 09/03/2023 15:52:36 Final Observation Date Value Abnormality Reference (Units ) Status Vitamin B12 09/03/2023 15:52:36 [phone] (pg/mL) Final Performing Location [facility] - [address] [place] [address]
--- OUTSIDE RECORDS SUMMARY | 2023-10-23 19:11 | External Medical Summary ---
Author Name Unknown Address Unknown Organization : Laboratory Report Ordering Provider Test Date Status MYA CONRAD 09/03/2023 15:52:36 Final Observation Date Value Abnormality Reference (Units ) Status Vitamin E, level 09/03/2023 15:52:36 11.4 5.7 -19.9 (mg/L) Final Levels of alpha-tocopherol < 5 mg/L are consistent
with Vitamin E deficiency in adults. Beta+gamma tocopherol [Mass/ volume] in Serum or Plasma 09/03/2023 15:52:36 1.7 <=4.3 (mg/L) Final Vitamin supplementation with in 24 hours prior to
blood draw may affect the accuracy of the results.
This test was developed and its analytical performance
characteristics have been determined by [facility] [place], [place]. It has
not been cleared or approved by the U.S. Food and Drug
Administration. This assay has been validated pursuant
to the CLIA regulations and is used for clinical
purposes.

Test Performed at:
[facility]
[address] [facility]
[place] [address]
Igor Awan M.D., Ph.D.,Director of Laboratories Performing Location
--- OUTSIDE RECORDS SUMMARY | 2023-10-23 19:11 | External Medical Summary ---
Author Name Unknown Address Unknown Organization : Laboratory Report Ordering Provider Test Date Status MYA CONRAD 09/03/2023 15:52:36 Final Observation Date Value Abnormality Reference (Units ) Status Thiamine [Moles/volume] in Blood 09/03/2023 15:52:36 108 78-185 (nmol/L) Final Vitamin supplementation with in 24 hours prior to
blood draw may affect the accuracy of the results.
This test was developed and its analytical performance
characteristics have been determined by [employer] [facility]
[place], [place]. It has
not been cleared or approved by the U.S. Food and Drug
Administration. This assay has been validated pursuant
to the CLIA regulations and is used for clinical
purposes.

Test Performed at:
[facility]
[address] [facility] [place] [address]
Igor Awan M.D., Ph.D.,Director of Laboratories Performing Location
--- OUTSIDE RECORDS SUMMARY | 2023-10-23 19:11 | External Medical Summary | Summary of Care ---
Author Name Unknown Organization [facility] Address [address] [facility] [place] [address] Phone [phone] Care Team Providers Care Pressroom Foreman Name Role Phone Mervat Almanzar PA-C Primary Care Provider Reason for Visit * Reason Onset Date Comments Other 09/17/2023 BP check Encounter Details Date Type Department Care Team (Late st Contact Info) Description 09/17/2023 Telephone [facility] [address] [place] [phone] Mervat Almanzar PA-C 21 [employer] [place] [address] Other (BP check) Allergies Active Allergy [...] 3 09/06/2023 Active Vitamin D3 250 MCG (75968 UT) Oral TabletIndications:Vi tamin D deficiency Take [...] deficiency 03/22/2020 Coronary artery disease invo lving [place] coronary artery of [place] heart without angina pectoris 11/28/2019 Overview: Cardiac [...] Mixed incontinence urge and stress 07/13/2013 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/28 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 Hypothyroidism 09/01/2010 [...] encounter Miscellaneous Notes * Telephone Encounter - Maria L Bee MED ASSIST - 09/17/2023 3:13 PM EDT Vickie Pathak presented for blood [...] 11/25/2023 9:00 AM EDT Appointment Cardiac Studies, [address] [place] [address] 12/22/2023 9:40 AM EST Telemedicine Nutrition & Weight Management, [place] [address] [place] [address] Funmilayo Tabor MD [address] [place] [facility] [address] 03/15/2024 4:40 PM EST Office Visit [facility] 21 [facility] [place] [phone] Mervat Almanzar PA-C [facility] [address] Scheduled Procedures Name Priority Associated Diagnoses Date/Ti me COLONOSCOPY FLEXIBLE PROXIMA L DIAGNOSTIC Recall History of colonic polyps Health Maintenance Due Date Last Done Comments HIV Screening 10/16/1990 HPV/Co-Test 10/16/2005 DISCUSS TOBACCO CESSATION (REFER TO SMARTSET #1415) 06/29/2014 06/29/2013, 10/27/2012 Cologuard 10/16/2020 Fecal Occult [...] Not on filedocumented as of this encounter Advance Directives * Full Code [...] Power of Attor yas? No Care Teams Pressroom Foreman Relationship Specialty Start Date End Date Mervat Almanzar PA-C 21 [place] [id number] PCP - General Physician Creative Intern 09/16/22 documented as of this encounter"
--- OUTSIDE RECORDS SUMMARY | 2023-10-23 19:11 | External Medical Summary | Summary of Care ---
Author Name Unknown Organization [facility] Address [address] [facility] [place] [address] Phone [phone] Care Team Providers Care Civil Lawyer Name Role Phone Mervat Almanzar PA-C Primary Care Provider [phone] Reason for Referral * Evaluate & Treat - Unlimited Visits (Within 30 days (routine)) - Pending Review Specialty Diagnoses / Procedures Referred By Lena rivas Referred To Contact Gastroenterology Diagnoses Hepatic steatosis High serum ferritin Elevated liver enzymes Mervat Almanzar PA-C 21 [employer] [place] [address] Referral ID Status Reason Start Date Expiration Date Visits Requested Visits Authorized [id number] Pending Review Specialty Services Required 09/06/2023 999 [...] [place] [phone] Mervat Almanzar PA-C 21 [employer] [place] [id number] Test Results (Blood work) Allergies Active Allergy Reactions Criticality Noted Date Comments Rosuvastatin Low 06/23/2022 Joint pain documented as of this encounter (statuses as of 09/07/2023) Medications Medication Sig Dispensed Refills Start Date [...] 3 09/06/2023 Active Vitamin D3 250 MCG (94088 UT) Oral TabletIndications:V itamin D deficiency Take 1 Tablet by mouth every evening. 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 Hypothyroidism 09/01/2010 Overview: + thyroid ab 08/15/13 Irritable bowel syndrome 09/01/2010 Nonintractable epilepsy without status epileptic us Overview: Last seizure 2011 Migraines Intermittent asthma with rel iever use up to twice per week without complication Overview: PFT 07/20/16: no bronchodilator response, extrathoracic airway obstruction PFT 11/2019: normal documented as of this encounter (statuses as of 09/07/2023) Resolved Problems Problem Noted Date Diagnosed Date [...] as of this encounter (statuses as of 09/07/2023) Immunizations Name Administration Dates Next Due HepA [...] PM EDT Nurse Only Ancillary 1st Floor, [place] 21 [place] [address] [place], Nurse Fp 21 [address] [place] [address] 11/25/2023 9:00 AM EDT Appointment Cardiac Studies, [address] [place] [address] 12/22/2023 9:40 AM EST Telemedicine Nutrition & Weight Management, [place] [address] [place] [address] Funmilayo Tabor MD [address] [place], [place] [phone] 03/15/2024 4:40 PM EST Office Visit Family [facility], [place] 21 [address] [place] [phone] Mervat Almanzar PA-C [facility] [address] Scheduled Orders Name Type Priority Associated Diagnoses [...] Power of Attor yas? No Care Teams Civil Lawyer Relationship Specialty Start Date End Date Mervat Almanzar PA-C 21 [place] [address] PCP - General Physician Restaurant Inspector 09/16/22 documented as of this encounter
--- OUTSIDE RECORDS SUMMARY | 2023-10-23 19:11 | External Medical Summary | Summary of Care ---
Author Name Unknown Organization [facility] Address [address] [facility] [place] [address] Phone [phone] Care Team Providers Care Take Up Operator Name Role Phone Mervat Almanzar PA-C Primary Care Provider Encounter Details Date Type Department Care Team (Late st Contact Info) Description 09/03/2023 Telephone [facility] 21 [facility] [place] [phone] Mervat Almanzar PA-C 21 [facility] [place], [place] [phone] Allergies Active Allergy Reactions Criticality Noted Date Comments Rosuvastatin Low 06/23/2022 Joint pain documented as of this encounter (statuses as of 09/03/2023) Medications Medication Sig Dispensed Refills Start Date End Date Status Fexofenadine HCl 180 MG Oral Tablet Take 1 Tablet by mouth in the morning. 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 90 Tablet 1 03/05/2022 Active Additional Information Patient not taking.Reported on 09/03/2023 Sulindac 200 MG Oral TabletIndications:De generation of [...] the morning. 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/28 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 Hypothyroidism 09/01/2010 Overview: + thyroid ab 08/15/13 Irritable bowel syndrome 09/01/2010 Nonintractable epilepsy without status epileptic us Overview: Last seizure 2011 Migraines Intermittent asthma with rel iever use up to twice per week without complication Overview: PFT 07/20/16: no bronchodilator response, extrathoracic airway obstruction PFT 11/2019: normal documented as of this encounter (statuses as of 09/03/2023) Resolved Problems Problem Noted Date Diagnosed Date [...] as of this encounter (statuses as of 09/03/2023) Immunizations Name Administration Dates Next Due HepA [...] encounter Miscellaneous Notes * Telephone Encounter - Meka Herndon OSA - 09/03/2023 3:32 PM EDT Pt hand carried DME documented in this encounter Plan of Treatment Upcoming Encounters Date Type Department Care Team (Late st Contact Info) Description 09/17/2023 2:40 PM EDT Nurse Only Ancillary 1st Floor, [place] 21 [facility] [place] [address] [place], Nurse Fp 21 [facility] Rodríguez [place] [address] 11/25/2023 9:00 AM EDT Appointment Cardiac Studies, [facility] [address] [place] [address] 12/22/2023 9:40 AM EST Telemedicine Nutrition & Weight Management, [place] [address] [place] [address] RestFunmilayo gil MD [address] [place] [address] Scheduled Procedures Name Priority Associated Diagnoses Date/Ti [...] 01/25/2023 Pap Smear 01/25/2023 01/26/2020, 01/15, 06/18/2014 GFR 06/24/2023 06/23/2022, 08/15, 08/16/2021, Additional history exists TSH 06/24/2023 06/23/2022, 08/15, 12/30/2020, Additional history exists *SPIROMETRY ONCE FOR ASTHMA-ADULT 08/29/2023 Depression Screening 09/17/2023 09/16/2022, 07/01/19 16 Influenza Vaccine (FLU shot) (#1) 2023 12/07/2018, 11/28/2014 DTaP,Tdap,and Td Vaccines (2 - Td or Tdap) 06/18/2024 06/18/2014 Albumin/Creatinine Ratio 04/23/2025 04/23/2022 Diabetes Screening 06/23/2025 06/23/2022, 0 08/28/2021, 08/16/2021, Additional history exists Colonoscopy 08/14/2025 08/14/2020, 08/14/2020 Colorectal Cancer Screening 08/14/2025 Pneumococcal Vaccine: Pediatrics (0 to 5 Years) [...] Power of Attor yas? No Care Teams Take Up Operator Relationship Specialty Start Date End Date Mervat Almanzar PA-C 21 [place] [phone] PCP - General Physician Cadastral Surveyor 09/16/22 documented as of this encounter
--- OUTSIDE RECORDS SUMMARY | 2023-10-23 19:11 | External Medical Summary ---
Author Name Unknown Address Unknown Organization K01:LABORATORY [facility] - [address] [place] [address] Laboratory Report Ordering Provider Test Date Status MYA CONRAD 09/03/2023 15:52:36 Final Observation Date Value Abnormality Reference (Units ) Status LDL, (direct) 09/03/2023 15:52:36 108 <=129 (mg/dL) Final LDL Cholesterol Reference Ra nges (mg/dL):
<70 Target level for high risk ASCVD patient
<100 Optimal for general population
100-129 Near optimal for general population
130-159 Borderline high
160-189 High
>=190 Very high Performing Location [facility] - [address] [place] [address]
--- OUTSIDE RECORDS SUMMARY | 2023-10-23 19:11 | External Medical Summary ---
Author Name Unknown Address Unknown Organization K01:[facility] - [address] [place] [address] Laboratory Report Ordering Provider Test Date Status MYA CONRAD 09/03/2023 15:52:36 Final Observation Date Value Abnormality Reference (Units ) Status Magnesium 09/03/2023 15:52:36 2.1 1.5-2.6 (m g/dL) Final Performing Location [facility] - [address] [place] [address]
--- OUTSIDE RECORDS SUMMARY | 2023-10-23 19:11 | External Medical Summary ---
Author Name Unknown Address Unknown Organization K01:[facility] [place] [address] [place] [address] Laboratory Report Ordering Provider Test Date Status MYA CONRAD 09/03/2023 15:52:36 Final Deficient: <20 ng/mL
Ins ufficient: 20-29 ng/mL
Recommended/Optimum:30-50 ng/mL

Vitamin D intoxication is rare. If suspicious of Vitamin D toxicity, evaluation of serum Calcium and PTH is recommended. Observation Date Value Abnormality Reference (Units ) Status 25-OH Vitamin D total 09/03/2023 15:52:36 13 Below low normal >19 (ng/mL) Final Performing Location [facility] - [address] [place] [address]
--- OUTSIDE RECORDS SUMMARY | 2023-10-23 19:11 | External Medical Summary ---
Author Name Unknown Address Unknown Organization K01:LABORATORY [facility] - [address] [facility] [address] Laboratory Report Ordering Provider Test Date Status MYA CONRAD 09/03/2023 15:52:36 Final Observation Date Value Abnormality Reference (Units ) Status BUN 09/03/2023 15:52:36 7 6-20 (mg/dL) Final Creatinine 09/03/2023 15:52:36 0.8 0.5-1.0 (mg/dL) Final Glomerular filtration rate/1.73 sq M.predicted [Volume Rate/Area] in Serum, Plasma or Blood by Creatinine-based formula (CKD-EPI) 09/03/2023 15:52:36 89 >=60 (mL/min) Final eGFR is calculated based on the CKD-EPI 2020 equation. Sodium 09/03/2023 15:52:36 139 135-146 (m mol/L) Final Potassium 09/03/2023 15:52:36 4.0 3.5-5.1 (m mol/L) Final Cl 09/03/2023 15:52:36 103 98-107 (mm ol/L) Final CO2 09/03/2023 15:52:36 26 22-32 (mmo l/L) Final Anion gap 09/03/2023 15:52:36 10 7-15 (mmol /L) Final Glucose 09/03/2023 15:52:36 79 70-120 (mg /dL) Final Albumin 09/03/2023 15:52:36 3.9 3.8-5.0 (g /dL) Final AST (Aspartate aminotransferase) 09/03/2023 15:52:36 49 Above high normal 10-35 (U/L) Final Alk Phos 09/03/2023 15:52:36 78 35-130 (U/ L) Final Bilirubin, Total 09/03/2023 15:52:36 0.3 <=1 .2 (mg/dL) Final Calcium 09/03/2023 15:52:36 8.8 8.4-10.2 ( mg/dL) Final Protein 09/03/2023 15:52:36 6.2 6.0-8.3 (g /dL) Final ALT (Alanine aminotransferase) 09/03/2023 15:52:36 51 Above high normal 10-35 (U/L) Final Performing Location LABORATORY [facility] - [address] [facility] [address]
--- OUTSIDE RECORDS SUMMARY | 2023-10-23 19:11 | External Medical Summary | Summary of Care ---
Author Name Unknown Organization [facility] Address [address] [facility] [place] [address] Phone [phone] Care Team Providers Care Watch Crystal Molder Name Role Phone Mervat lAmanzar PA-C Primary Care Provider Reason for Visit * Reason Comments Outpatient Testing Encounter Details Date Type Department Care Team (Late st Contact Info) Description 09/03/2023 3:40 PM EDT Laboratory Laboratory, [place] 21 [facility] [place] [phone] 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/28 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 Hypothyroidism [...] on file documented as of this encounter Plan of Treatment Upcoming Encounters Date Type Department Care Team (Late st Contact Info) Description 09/17/2023 2:40 PM EDT Nurse Only Ancillary 1st Floor, [place] 21 [facility] [place] [address] [place], Nurse Fp [facility] [place] [address] 11/25/2023 9:00 AM EDT Appointment Cardiac Studies, [facility] [address] [facility] [place] [address] 12/22/2023 9:40 AM EST Telemedicine Nutrition & Weight Management, [place] [address] [place] [facility] [place] [place] [address] Funmilayo Tabor MD [address] [place] [address] 03/15/2024 4:40 PM EST Office Visit [facility], [place] [address] [place] [phone] Mervat Almanzar PA-C [facility] [address] Pending Results Name Type Priority Associated Diagnoses Date /Time COMPREHENSIVE METABOLIC PANEL Lab Routine HTN, goal below 140/90 Hepatic steatosis Coronary artery disease involving council coronary artery of council heart without angina pectoris 09/03/2023 3:52 PM EDT CBC Lab Routine HTN, goal below 140/90 09/03/2023 3:52 PM EDT MAGNESIUM Lab Routine HTN, goal below 140/90 Nutritional deficiency 09/03/2023 3:52 PM EDT LIPID PANEL WITH DIRECT LDL IF TG IS HIGH Lab Routine HTN, goal below 140/90 Coronary artery disease involving council coronary artery of council heart without angina pectoris 09/03/2023 3:52 PM EDT 25-HYDROXY VITAMIN D Lab Routine Nutritional deficiency 09/03/2023 3:52 PM EDT HEMOGLOBIN A1C Lab Routine Nutritional deficiency 09/03/2023 3:52 PM EDT VITAMIN B12 Lab Routine Nutritional deficiency 09/03/2023 3:52 PM EDT FOLIC ACID Lab Routine Nutritional deficiency 09/03/2023 3:52 PM EDT FERRITIN Lab Routine Nutritional deficiency 09/03/2023 3:52 PM EDT IRON SCREEN, INCLUDING TIBC Lab Routine Nutritional deficiency 09/03/2023 3:52 PM EDT VITAMIN B1 (THIAMINE), BLOOD, LC/MS/MS Lab Routine Nutritional deficiency 09/03/2023 3:52 PM EDT VITAMIN E (TOCOPHEROL) Lab Routine Nutritional deficiency 09/03/2023 3:52 PM EDT VITAMIN A (RETINOL) Lab Routine Nutritional deficiency 09/03/2023 3:52 PM EDT ZINC Lab Routine Nutritional deficiency 09/03/2023 3:52 PM EDT TSH WITH FREE T4 IF INDICATED Lab Routine 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 No Care Teams Watch Crystal Molder Relationship Specialty Start Date End Date Mervat Almanzar PA-C 21 [place] [phone] PCP - General Physician Jewel Bearing Broacher 09/16/22 documented as of this encounter
--- OUTSIDE RECORDS SUMMARY | 2023-10-23 19:11 | External Medical Summary ---
Author Name Unknown Address Unknown Organization K01:[facility] [place] [address] [place] [id number] Laboratory Report Ordering Provider Test Date Status MYA CONRAD 09/03/2023 15:52:36 Final Observation Date Value Abnormality Reference (Units ) Status Ferritin 09/03/2023 15:52:36 456 Above high normal 13 -150 (ng/mL) Final Postmenopausal women have hi gher ferritin levels than pre-menopausal women. The above reference interval is based on pre-menopausal women. Performing Location [facility] - [address] [place] [id number]
--- OUTSIDE RECORDS SUMMARY | 2023-10-23 19:11 | External Medical Summary ---
Author Name Unknown Address Unknown Organization K01:[facility] - [address] [place] [address] Laboratory Report Ordering Provider Test Date Status MYA CONRAD 09/03/2023 15:52:36 Final Observation Date Value Abnormality Reference (Units ) Status Folic Acid 09/03/2023 15:52:36 5.0 >4.5 (ng/ mL) Final Performing Location [facility] - [address] [place] [address]
--- OUTSIDE RECORDS SUMMARY | 2023-10-23 19:11 | External Medical Summary ---
Author Name Unknown Address Unknown Organization : Laboratory Report Ordering Provider Test Date Status MYA CONRAD 09/03/2023 15:52:36 Final Observation Date Value Abnormality Reference (Units ) Status Vitamin A, level 09/03/2023 15:52:36 25 Below low nor mal 38-98 (mcg/dL) Final Vitamin supplementation with in 24 hours prior to
blood draw may affect the accuracy of the results.
This test was developed and its analytical performance
characteristics have been determined by [facility] [employer] [place], [place]. It has
not been cleared or approved by the U.S. Food and Drug
Administration. This assay has been validated pursuant
to the CLIA regulations and is used for clinical
purposes.

Test Performed at:
[facility]
[address] [facility]
[place] [address]
Igor Awan M.D., Ph.D.,Director of Laboratories Performing Location
--- OUTSIDE RECORDS SUMMARY | 2023-10-23 19:11 | External Medical Summary ---
Author Name Unknown Address Unknown Organization K01:LABORATORY C - [address] [facility] [address] Laboratory Report Ordering Provider Test Date Status MYA CONRAD 09/03/2023 15:52:36 Final Observation Date Value Abnormality Reference (Units ) Status HbA1C 09/03/2023 15:52:36 5.5 4.0-5.6 (% ) Final The use of HbA1c to monitor glycemic status is based on normal hemoglobin and HbA composition. This test should not be used in patients with abnormal hemoglobin that affects the half life of the red blood cell or the in vivo glycation rates. Glucose, estimated average 09/03/2023 15:52:36 111 <126 (mg/dL) Final Performing Location [facility] - [address] [facility] [address]
--- OUTSIDE RECORDS SUMMARY | 2023-10-23 19:11 | External Medical Summary ---
Author Name Unknown Address Unknown Organization [id number]:[facility] [place] [address] [facility] [id number] Laboratory Report Ordering Provider Test Date Status MYA CONRAD 09/03/2023 15:52:36 Final Observation Date Value Abnormality Reference (Units ) Status WBC, Total 09/03/2023 15:52:36 8.48 4.00-10.80 (K/uL) Final RBC 09/03/2023 15:52:36 4.62 3.85-5.15 (M/uL) Final Hemoglobin 09/03/2023 15:52:36 14.6 12.0-15.3 (g/dL) Final HCT 09/03/2023 15:52:36 44.3 36.0-45.2 (%) Final MCV 09/03/2023 15:52:36 95.9 81.5-97.5 (fL) Final MCH 09/03/2023 15:52:36 31.6 27.0-34.0 (pg) Final MCHC 09/03/2023 15:52:36 33.0 32.0-36.0 (g/dL) Final RDW 09/03/2023 15:52:36 12.5 11.5-15.5 (%) Final Platelets 09/03/2023 15:52:36 231 140-400 (K/uL) Final MPV 09/03/2023 15:52:36 12.1 6.6-11.1 (fL) Final Nucleated erythrocytes/100 leukocytes [Ratio] in Blood by Automated count 09/03/2023 15:52:36 0 <=0 (/100 WBCs) Final Performing Location [facility] [place] [address] [place] [address]
--- OUTSIDE RECORDS SUMMARY | 2023-10-23 19:11 | External Medical Summary | Summary of Care ---
Author Name Unknown Organization [facility] Address [address] [place] [address] Phone [phone] Care Team Providers [employer] Name Role Phone Mervat Almanzar PA-C Primary Care Provider [phone] Reason for Referral * Evaluate & Treat - Unlimited Visits (Within 30 days (routine)) - Pending Review Specialty Diagnoses / Procedures Referred By Lena rivas Referred To Contact Gastroenterology Diagnoses Hepatic steatosis High serum ferritin Elevated liver enzymes Mervat Almanzar PA-C [email or web address] [place] [id number] Referral ID Status Reason Start Date Expiration Date Visits Requested Visits Authorized [id number] Pending Review Specialty Services Required 09/06/2023 999 [...] [place] [phone] Mervat Almanzar PA-C [address] [place] [id number] Test Results (Blood work) Allergies Active Allergy Reactions Criticality Noted Date Comments Rosuvastatin Low 06/23/2022 Joint pain documented as of this encounter (statuses as of 09/08/2023) Medications Medication Sig Dispensed Refills Start Date [...] 3 09/06/2023 Active Vitamin D3 250 MCG (03427 UT) Oral TabletIndications:V itamin D deficiency Take 1 Tablet by mouth every evening. 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 06/28: oxybutynin 09/28 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 Hypothyroidism 09/01/2010 Overview: + thyroid ab 08/15/13 Irritable bowel syndrome 09/01/2010 Nonintractable epilepsy without status epileptic us Overview: Last seizure 2011 Migraines Intermittent asthma with rel iever use up to twice per week without complication Overview: PFT 07/20/16: no bronchodilator response, extrathoracic airway obstruction PFT 11/2019: normal documented as of this encounter (statuses as of 09/08/2023) Resolved Problems Problem Noted Date Diagnosed Date [...] as of this encounter (statuses as of 09/08/2023) Immunizations Name Administration Dates Next Due HepA [...] Telephone Encounter - Meka Herndon OSA - 09/08/2023 8:16 AM EDT Pt scheduled * Telephone Encounter - Kym Bee OSA - 09/06/2023 12:31 PM EDT Who is [...] PM EDT Nurse Only Ancillary 1st Floor, [place] [address] [phone] [place] [address] [facility] [phone] 11/25/2023 9:00 AM EDT Appointment Cardiac Studies, [facility] [address] [place] [id number] 12/21/2023 9:20 AM EST Telemedicine Gastroenterology, [facility] [place] [address] [place] [address] Iris Brown CRNP [address] [place] [address] 12/22/2023 9:40 AM EST [facility]medicine [facility] [address] [place] [address] Funmilayo Tabor MD [address] [place] [address] 03/15/2024 4:40 PM EST Office Visit Family [facility], [place] [address] [place] [phone] Mervat Almanzar PA-C [address] [phone] Scheduled Orders Name Type Priority Associated Diagnoses [...] 10/16/2005 DISCUSS TOBACCO CESSATION (REFER TO SMARTSET #0297) 06/29/2014 06/29/2013, 10/27/2012 Cologuard 10/16/2020 Fecal Occult [...] Power of Attor yas? 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
[2023-10-23] MEDS ORDERED: Nursing to Pharmacy Communication SCH (20:45)
[2023-10-23] MEDS: CHOLECALCIFEROL 25 MCG (1000 UNITS) TAB PO SCH (21:12)
[2023-10-23] MEDS: LOSARTAN POTASSIUM 50 MG TAB PO SCH (21:14)
[2023-10-23] MEDS: ENOXAPARIN INJ 40 MG/0.4 ML SYR SQ SCH (21:15)
[2023-10-24] MEDS: LEVOTHYROXINE SODIUM 88 MCG TABLET PO SCH (05:48)
[2023-10-24 06:12] LABS: Hematocrit (blood only) 40.5 % (37.0-47.0); Hemoglobin 13.5 g/dl (12.0-16.0); Mean Corpuscular Hemoglobin 31.6 pg (25.0-34.0); Mean Corpuscular Hgb Conc 33.3 g/dL (32.0-36.0); Mean Corpuscular Volume 94.8 fL (80.0-100.0); Mean Platelet Volume 11.6 fL (9.4-12.4); Platelet Count 203 K/uL (130-400); RDW Coefficient of Variation 12.7 % (11.5-14.5); Red Blood Count 4.27 M/uL (4.20-5.40); White Blood Count 7.75 K/ul (4.8-10.8)
[2023-10-24 06:27] LABS: BUN Creatinine Ratio 12.2 (10-20); Chol HDL Ratio 8.8 (0-5); Creatinine Clr Calc Pharmacy 106.7 ml/min; Est GFR (African American) 98.1 ml/min; Est GFR (Non-African American) 84.6 ml/min; Potassium 3.8 mmol/L (3.5-5.1)
[2023-10-24 06:31] LABS: Troponin I High Sensitivity 9.3 pg/ml (0-14)
[2023-10-24 07:10] LABS: Estimated Average Glucose 117 mg/dl; Hemoglobin A1C 5.7 % (4.5-5.6)
[2023-10-24] MEDS ORDERED: LOSARTAN POTASSIUM 50 MG TAB PO SCH (09:00)
[2023-10-24] MEDS: FUROSEMIDE 20 MG TAB PO SCH (10:25)
[2023-10-24] MEDS: ASPIRIN 81 MG ECTAB PO SCH (10:25)
[2023-10-24] MEDS: CHOLECALCIFEROL 25 MCG (1000 UNITS) TAB PO SCH (10:26)
[2023-10-24] MEDS: CETIRIZINE HCL 10 MG TABLET PO SCH (10:26)
[2023-10-24] MEDS: NICOTINE 14 MG/24 HR PATCH TD SCH (10:26)
[2023-10-24] MEDS: FLUTICASONE/VILANTEROL 100/25MCG 14 PUFFS/INHALER INH SCH (10:26)
[2023-10-24] MEDS: PANTOprazole 40 MG TAB PO SCH (10:26)
[2023-10-24] MEDS: FOLIC ACID 1 MG TAB PO SCH (10:27)
[2023-10-24] MEDS: POTASSIUM CHLORIDE CRTAB 20 MEQ TABCR PO SCH (10:55)
--- NOTE | 2023-10-24 15:04 | Cardiology Consultation ---
<Statement entered by Leslye Lujan, DO - 10/24/23 18:23> I have reviewed the advanced practitioner's documentation and agree with the plan of care. I accept the responsibility for the associated risk. Pt seen in cardiology consultation due to chest pain for weeks in the setting variable elevated BP readings she was recently started on lasix in addtion to her losartan she had non-obstructive CAD based on cath was a few years ago She is due to follow with sleep medicine in the upcoming weeks recommend discharge on imdur 30mg daily in addition to the lasix 20mg daily and losartan 50mg in the evening i will also arrange for nuclear stress test at [facility] as an outpatient she will have cardiology f/u in [facility] she can be discharged home continue to minimize sodium intake I discussed the case with the hospitalist on the phone and he agreed with my recommendations Date of Consultation October 24, 2023 Assessment & Plan (1) Chest pain: (2) Abnormal ECG: (3) HTN (hypertension): Plan -HR well controlled -BP elevated on presentation, improved with IV Labetalol -intolerant to statin therapy, unable to tolerate Rosuvastatin or Lipitor -continue ASA -encouraged to work toward tobacco cessation -echocardiogram indicated normal EF, mild LVH, no significant valvular dx -given her risk factors and presenting symptoms would recommend a nuclear stress test but given that it has resolved with no acute ECG changes this can be completed as an outpatient -upcoming appt with sleep medicine for re-evaluation, prior SHEFALI testing from a few years ago was mild (she was told that she did not need CPAP at that time) -continue losartan and furosmide -add Imdur 30 mg daily -low Na diet -can follow up outpatient on the Cardiology office Case discussed with Dr. Lujan, see her attestation for additional recommendations KELSEA Ramos Cardiology History of Present Illness Reason for Consultation: Chest Pain Requesting Physician: Hospitalist Attending Physician: Marcela Walton MD History of Present Illness 48 year old female seen in consultation today in regard to chest pain. Presented to the ER yesterday afternoon with intermittent chest pain over the past 1-2 months. 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 Known past medical history on nonobstructive CAD, HTN, tobacco use, epilepsy, asthma, hepatic steatosis, obesity. Chest pain described as a tightening feeling under the left breast. Also has worsening SOB over the past few weeks. Denies palpitations, syncope, edema. Allergies Allergy/AdvReac Type Severity Reaction Status Date / Time rosuvastatin [From Crestor] Allergy Mild Joint Pain Verified 10/23/23 17:08 Home Medications Medication Instructions Recorded Confirmed Type albuterol sulfate 90 mcg/actuation 2 puff inhalation QID PRN SOB or 10/23/23 10/23/23 History aerosol inhaler Wheezing budesonide-formoterol HFA 160 2 puff inhalation BID 10/23/23 10/23/23 History mcg-4.5 mcg/actuation aerosol inhaler cetirizine 10 mg tablet 10 mg PO DAILY 10/23/23 10/23/23 History cholecalciferol (vitamin D3) 100 1,000 unit PO HS 10/23/23 10/23/23 History mcg (4,000 unit) capsule folic acid 1 mg tablet 1 mg PO DAILY 10/23/23 10/23/23 History furosemide 20 mg tablet 20 mg PO DAILY 10/23/23 10/23/23 History levothyroxine 88 mcg tablet 88 mcg PO DAILY 10/23/23 10/23/23 History losartan 50 mg tablet 50 mg PO DAILY 10/23/23 10/23/23 History omeprazole 20 mg tablet,delayed 20 mg PO DAILY 10/23/23 10/23/23 History release aspirin 81 mg tablet,delayed 81 mg PO DAILY #30 tabs 10/24/23 Rx release nicotine 7 mg/24 hr daily 1 patch transdermal QAM #28 ea 10/24/23 Rx transdermal patch Patient History Medical History Mixed incontinence urge and stress High serum ferritin Tobacco use Myelopathy Essential tremor Migraines Epilepsy Restless legs syndrome Vitamin E deficiency Folic acid deficiency Hepatic steatosis Irritable bowel syndrome (IBS) Morbid obesity HTN (hypertension) CAD (coronary artery disease) Laryngopharyngeal reflux Mild obstructive sleep apnea Moderate persistent asthma Thyroid nodule Hypothyroidism Social History Smoking Status: Current every day smoker Tobacco Type: Cigarettes Hx Alcohol Use: No Hx Substance Use: Yes Preferred Language: Arabic Director Operating Required: No Beliefs That Will Affect Care: None Current Living Situation: Spouse Feels Safe at Home: Yes Review of Systems Review of Systems: All systems reviewed & are unremarkable except as noted in HPI & below Physical Exam Constitutional: WD/WN, vitals as above well developed, well nourished and + obese Neck: trachea midline, no thyromegaly Respiratory: normal respiratory effort, lungs clear to auscultation Cardiovascular: RRR, no murmur, no edema Gastrointestinal (Abdomen): normal bowel sounds, soft, nontender, no hepatosplenomegaly Skin: no rashes, warm and dry Psychiatric: A+Ox3, euthymic affect Results & Data Vital Signs (Past 12 Hours) Vital Signs Temp Pulse Pulse Pulse Resp BP Pulse Ox 10/24/23 11:29 36.4 C L 58 L 18 108/73 95 10/24/23 10:00 55 L 10/24/23 07:54 36.7 C 62 18 111/74 96 10/24/23 03:53 36.7 C 65 18 114/70 96 O2 Del Method 10/24/23 11:29 Room Air 10/24/23 10:00 10/24/23 07:54 Room Air 10/24/23 03:53 Room Air Laboratory Results Laboratory Results WBC 7.75 K/ul (4.8-10.8) 10/24/23 05:24 RBC 4.27 M/uL (4.20-5.40) 10/24/23 05:24 Hgb 13.5 g/dl (12.0-16.0) 10/24/23 05:24 Hct 40.5 % (37.0-47.0) 10/24/23 05:24 MCV 94.8 fL (80.0-100.0) 10/24/23 05:24 MCH 31.6 pg (25.0-34.0) 10/24/23 05:24 MCHC 33.3 g/dL (32.0-36.0) 10/24/23 05:24 RDW Std Deviation 44.0 fL (36.4-46.3) 10/24/23 05:24 RDW Coeff of Kiet 12.7 % (11.5-14.5) 10/24/23 05:24 Plt Count 203 K/uL (130-400) 10/24/23 05:24 MPV 11.6 fL (9.4-12.4) 10/24/23 05:24 Immature Gran % (Auto) 0.3 % 10/23/23 14:17 Neut % (Auto) 48.9 % 10/23/23 14:17 Lymph % (Auto) 42.9 % 10/23/23 14:17 [place] % (Auto) 5.2 % 10/23/23 14:17 Eos % (Auto) 1.8 % 10/23/23 14:17 Baso % (Auto) 0.9 % 10/23/23 14:17 Neut # (Auto) 4.92 K/uL (1.40-6.50) 10/23/23 14:17 Lymph # (Auto) 4.32 K/uL (1.20-3.40) H 10/23/23 14:17 [place] # (Auto) 0.52 K/uL (0.11-0.59) 10/23/23 14:17 Eos # (Auto) 0.18 K/uL (0.00-0.50) 10/23/23 14:17 Baso # (Auto) 0.09 K/uL (0.00-0.20) 10/23/23 14:17 Immature Gran # (Auto) 0.03 K/uL (0.01-0.20) 10/23/23 14:17 Sodium 141 mmol/L (136-145) 10/24/23 05:24 Potassium 3.8 mmol/L (3.5-5.1) 10/24/23 05:24 Chloride 109 mmol/L (98-107) H 10/24/23 05:24 Carbon Dioxide 26 mmol/L (21-32) 10/24/23 05:24 Anion Gap 6 (3-11) 10/24/23 05:24 BUN 10 mg/dl (6-23) 10/24/23 05:24 Creatinine 0.82 mg/dl (0.6-1.2) 10/24/23 05:24 Est Cr Clr Drug Dosing 106.7 ml/min 10/24/23 05:24 Est GFR ( Amer) 98.1 ml/min 10/24/23 05:24 Est GFR (Non-Af Amer) 84.6 ml/min 10/24/23 05:24 BUN/Creatinine Ratio 12.2 (10-20) 10/24/23 05:24 Glucose 89 mg/dl (70-99(Fasting)) 10/24/23 05:24 Estimat Average Glucose 117 mg/dl 10/24/23 05:24 Hemoglobin A1c 5.7 % (4.5-5.6) H 10/24/23 05:24 Calcium 8.0 mg/dl (8.6-10.3) L 10/24/23 05:24 Magnesium 1.8 mg/dl (1.7-2.4) 10/23/23 16:57 Total Bilirubin 0.5 mg/dl (0.2-1.0) 10/23/23 14:17 AST 75 U/L (13-39) H 10/23/23 14:17 ALT 87 U/L (7-52) H 10/23/23 14:17 Alkaline Phosphatase 63 U/L (34-104) 10/23/23 14:17 Troponin I High Sens 9.8 pg/ml (0-14) 10/24/23 10:04 B-Natriuretic Peptide 124 pg/ml (0-100) H 10/23/23 14:17 Total Protein 6.6 gm/dl (6.0-8.3) 10/23/23 14:17 Albumin 4.0 gm/dl (3.4-5.0) 10/23/23 14:17 Globulin 2.6 gm/dl (2.5-4.0) 10/23/23 14:17 Albumin/Globulin Ratio 1.5 (0.9-2) 10/23/23 14:17 Triglycerides 298 mg/dl (0-150) H 10/24/23 05:24 Cholesterol 168 mg/dl (0-200) 10/24/23 05:24 LDL Cholesterol, Calc 89 mg/dl 10/24/23 05:24 VLDL Cholesterol, Calc 60 mg/dl (0-30) H 10/24/23 05:24 HDL Cholesterol 19 mg/dl 10/24/23 05:24 Cholesterol/HDL Ratio 8.8 (0-5) H 10/24/23 05:24 Lipase 32 U/L (11-82) 10/23/23 14:17 TSH 2.479 uIu/ml (0.300-4.500) 10/23/23 16:57 Impressions Chest X-Ray 10/23/23 14:05 XR chest 1V portable HISTORY: 48 years-old Female Chest pain, nonspecific COMPARISON: None TECHNIQUE: AP view of the chest FINDINGS: Cardiomediastinal and hilar silhouettes are within normal limits. There is minimal linear left basilar atelectasis. No pneumothorax, pleural effusion or pulmonary edema. Bones appear grossly intact. IMPRESSION: No acute process. ACT 112: Negative or not required by law. The above report was generated using voice recognition software. It may contain grammatical, syntax or spelling errors. Electronically signed by: Jeffrey Pike M.D. 10/23/2023 2:51 PM Medications Administered Current Inpatient Medications Acetaminophen (Acetaminophen 325 Mg Tab) 650 mg PO Q4H PRN PRN Reason: pain/fever Stop: 11/22/23 19:08 Aspirin (Aspirin 81 Mg Ectab) 81 mg PO DAILY [facility] Stop: 11/23/23 08:59 Last Admin: 10/24/23 10:25 Dose: 81 mg Cetirizine HCl (Cetirizine Hcl 10 Mg Tablet) 10 mg PO DAILY JACKIE Stop: 11/23/23 08:59 Last Admin: 10/24/23 10:26 Dose: 10 mg Enoxaparin Sodium (Enoxaparin Inj 40 Mg/0.4 Ml Syr) 40 mg SQ Q12H JACKIE Stop: 11/22/23 19:59 Last Admin: 10/24/23 10:25 Dose: 40 mg Fluticasone/Vilanterol (Fluticasone/Vilanterol 100/25mcg 14 Puffs/Inhaler) 1 puffs INH DAILY JACKIE; Protocol Stop: 11/23/23 08:59 Last Admin: 10/24/23 10:26 Dose: 1 puffs Folic Acid (Folic Acid 1 Mg Tab) 1 mg PO DAILY JACKIE Stop: 11/23/23 08:59 Last Admin: 10/24/23 10:27 Dose: 1 mg Furosemide (Furosemide 20 Mg Tab) 20 mg PO DAILY JACKIE Stop: 11/23/23 08:59 Last Admin: 10/24/23 10:25 Dose: 20 mg Levalbuterol HCl (Levalbuterol Hcl 0.63 Mg/3 Ml Neb) 0.63 mg NEB Q4H PRN; Protocol PRN Reason: Shortness Of Breath Or Wheezing Stop: 11/22/23 19:08 Levothyroxine Sodium (Levothyroxine Sodium 88 Mcg Tablet) 88 mcg PO DAILYBB [facility] Stop: 11/23/23 06:29 Last Admin: 10/24/23 05:48 Dose: 88 mcg Losartan Potassium (Losartan Potassium 50 Mg Tab) 50 mg PO HS [facility] Stop: 11/22/23 20:59 Last Admin: 10/23/23 21:14 Dose: 50 mg Miscellaneous (Remove Nicoderm Patch) 1 each N/A DAILY@0859 [facility] Stop: 11/23/23 08:58 Last Admin: 10/24/23 10:24 Dose: Not Given Nicotine (Nicotine 14 Mg/24 Hr Patch) 1 patch TD [facility] Stop: 11/23/23 08:59 Last Admin: 10/24/23 10:26 Dose: Not Given Ondansetron HCl (Ondansetron Inj 2 Mg/Ml 2 Ml Vial) 4 mg IV Q6H PRN PRN Reason: Nausea Stop: 11/22/23 19:08 Pantoprazole Sodium (Pantoprazole 40 Mg Tab) 40 mg PO DAILY [facility] Stop: 11/23/23 08:59 Last Admin: 10/24/23 10:26 Dose: 40 mg Polyethylene Glycol (Polyethylene (Miralax) 17 Gm Pack) 17 gm PO DAILY PRN PRN Reason: Constipation Stop: 11/22/23 19:08 Potassium Chloride (Potassium Chloride Crtab 20 Meq Tabcr) [facility] [facility] [place] Stop: 11/23/23 08:59 Last Admin: 10/24/23 10:55 Dose: 20 meq Vitamin D (Cholecalciferol 25 Mcg (1000 Units) Tab) 25 mcg [facility] [place] [facility] [place] Stop: 11/22/23 20:59 Last Admin: 10/24/23 10:26 Dose: 25 mcg
[2023-10-24 16:25] VITALS: BP 123/86; RESP 20; TEMP 98.1; O2SAT 97
--- NOTE | 2023-10-24 17:47 | Discharge Summary ---
Date of Service October 24, 2023 Admission HPI Per Admitting Provider Vickie Pathak is a 48y/o with PMHx of hypothyroidism, thyroid nodule, moderate persistent asthma without complication, mild obstructive sleep apnea [on CPAP], laryngopharyngeal reflux, CAD, HTN, morbid obesity, IBS, hepatic steatosis, epilepsy, essential tremor, myelopathy, tobacco use disorder, history of DVT [06/2012], migraines and other problems listed below who presented to the ED today for evaluation of chest pain. History obtained from patient and associated chart review. Patient with intermittent chest pain since August. Describes it more of as a chest tightening sensation under the L breast region. Reports it can come on at any time, however is worse with exertion. She has also noticed some increasing SOB with exertion over the past few weeks. No supplemental oxygen use at home. Also endorses some intermittent dizziness. Had a cardiac cath done on 09/17/21 at [facility] after stress testing came back abnormal. No acute findings were noted and no interventions were performed. She smokes about 1ppd, no alcohol use. No recreational drug use. Had a DVT in 2012. Admission Exam Per Admitting Provider General Appearance: Morbidly obese, no apparent distress Head: normocephalic, Atraumatic Eyes: normal inspection, EOMI Neck: supple, Trachea midline Respiratory/Chest: Normal breath sounds, CTA, No accessory muscle use Cardiovascular: S1, S2, No murmur Abdomen/GI:Soft, Non tender, Bowel sounds present Extremities/Musculoskeletal:normal inspection, trace pedal edema Neurologic/Psych:AAOX3, grossly no focal neurological deficits Skin: normal color, warm Principal Diagnosis Chest pain rule out ACS Uncontrolled hypertension Prediabetes, A1c 5.7 Discharge Exam General Appearance: Morbidly obese, no apparent distress Head: normocephalic, Atraumatic Eyes: normal inspection, EOMI Neck: supple, Trachea midline Respiratory/Chest: Normal breath sounds, CTA, No accessory muscle use Cardiovascular: S1, S2, No murmur Abdomen/GI:Soft, Non tender, Bowel sounds present Extremities/Musculoskeletal:normal inspection, trace pedal edema Neurologic/Psych:AAOX3, grossly no focal neurological deficits Skin: normal color, warm Discharge Data Allergies Allergy/AdvReac Type Severity Reaction Status Date / Time rosuvastatin [From Crestor] Allergy Mild Joint Pain Verified 10/23/23 17:08 Consultations 10/23/23 16:27 ED Decision to Admit Stat 10/23/23 16:56 Consult Cardiology Routine Hospital Course (1) Chest pain: Plan Per prior attending w/ addendum: Vickie Pathak is a 48y/o with PMHx of hypothyroidism, thyroid nodule, moderate persistent asthma without complication, mild obstructive sleep apnea [on CPAP], laryngopharyngeal reflux, CAD, HTN, morbid obesity, IBS, hepatic steatosis, epilepsy, essential tremor, myelopathy, tobacco use disorder, history of DVT [06/2012], migraines and other problems listed below who presented to the ED today for evaluation of chest pain. Chest Pain, R/O ACS: History as per HPI. EKG negative for any overt, acute ischemic changes. CXR negative. Initial troponin 14.6, repeat troponin 11.4 - will continue to trend. BNP 124. Daily EKG x 2. EKG w/ chest pain PRN. Routine cardiology consult at patient's request. Echo pending. Smoking cessation encouraged. Hgb A1c, lipid panel in AM. NPO at midnight pending cardiology evaluation. Scheduled 81mg ASA daily starting tomorrow. Uncontrolled HTN: Continue Lasix and losartan. S/p 10mg IV labetalol in ED, BP improved. Hypokalemia: K+ 3.2 on presentation. 40 mEq po K+ repleted in ED. Continue w/ scheduled K+ supplementation tomorrow. Monitor and replete K+ PRN. Epilepsy: Not currently on any seizure medications. Seizure precautions. Asthma: Continue home Symbicort, hold home rescue inhaler. Xopenex nebs PRN for SOB/wheezing while inpatient. Other Chronic Medical Conditions: GERD, hypothyroidism [TSH WNL], seasonal allergies --> Continue home meds for these specific conditions. Use CPAP HS for SHEFALI. DVT Prophylaxis: SQ Lovenox Code Status: FULL CODE PCP: Mervat Almanzar PA-C Addendum 10/24/2023: pt was seen and examined at bedside. Pt reports no further chest pain. Trop downtrended. EKG w/ no acute ST or T changes. D/w cardio over the phone, plan to add imdur 30 mg daily and plan for OP stress test. Pt being discharged w/ following instructions at the point of discharge: Follow-up with your primary care physician within a week time and likely you will need labs CBC/CMP/magnesium/phosphorus. Follow-up with cardiology in 2 to 4 weeks time of discharge. Cardio evaled you, you will be discharged on Imdur 30 mg daily. Take lasix in the morning and losartan in the evening. You will likely need outpatient stress test. Measure your blood pressure twice a day, maintain a log to take to your primary care office for further management/evaluation for your blood pressure management. As discussed at the bedside, your A1c is 5.7 which means you have prediabetes. Encourage for lifestyle modification including daily exercise regimen/weight loss/healthy diet. You will need repeat A1c in about 3 months time, coordinate with your PCP office for long-term monitoring. Encourage smoking cessation. Take your medications as prescribed. Please make sure that you are able to get your medications today by calling your pharmacy before you leave the hospital so that your treatment continuity is not broken. Home Health Attestation I certify that this patient is under my care and that I, or a physicians assistant foreman working with me, had a face to-face encounter that meets the home health [id number] encounter requirements with this patient. The encounter with the patient was in whole, or in part, for the following medical condition, which is the primary reason for home health care (list medical condition): I certify that, based on my findings, the following services are medically necessary home health services: My clinical findings support the need for the above services because: Further, I certify that my clinical findings support that this patient is homebound (i.e. absences from home require considerable and taxing effort and are for medical reasons or islam services or infrequently or of short duration when for other reasons) because: Certification for Home Health Services: Based on the above findings, I certify that this patient is confined to the home and needs intermittent senior care care, physical therapy and/or speech therapy or continues to need occupational therapy. The patient is under my care, and I have initiated the establishment of the plan of care. This patient will be followed by a physician who will periodically review the plan of care. Total Time Total Time Spent Total Time Spent (In Minutes): 45 Discharge Plan Discharge Items Patient Disposition: Home - Self-Care Reason For Visit: CARDIAC ASSESSMENT Discharge Diagnosis: Chest pain rule out ACS Uncontrolled hypertension Prediabetes, A1c 5.7 Activity: Resume your previous activity Non-emergency contact: Primary Care Provider Call non-emergency contact if: you have any medication questions and your symptoms worsen Follow-up/Referrals: Mervat Almanzar PA-C [Primary Care Provider] - Diet: Heart Healthy and Low Sodium (2gm) Addtl Attending Provider Instructions: Follow-up with your primary care physician within a week time and likely you will need labs CBC/CMP/magnesium/phosphorus. Follow-up with cardiology in 2 to 4 weeks time of discharge. Cardio evaled you, you will be discharged on Imdur 30 mg daily. Take lasix in the morning and losartan in the evening. You will likely need outpatient stress test. Measure your blood pressure twice a day, maintain a log to take to your primary care office for further management/evaluation for your blood pressure management. As discussed at the bedside, your A1c is 5.7 which means you have prediabetes. Encourage for lifestyle modification including daily exercise regimen/weight loss/healthy diet. You will need repeat A1c in about 3 months time, coordinate with your PCP office for long-term monitoring. Encourage smoking cessation. Take your medications as prescribed. Please make sure that you are able to get your medications today by calling your pharmacy before you leave the hospital so that your treatment continuity is not broken. Pending Studies at Discharge: No Stand-Alone Forms: [facility], Smoking Cessation Medications and DC Order Prescriptions: New nicotine 7 mg/24 hr Patch 24 Hour 1 patch transdermal QAM Qty: 28 0RF aspirin 81 mg Tablet,Delayed Release (Dr/Ec) 81 mg PO DAILY Qty: 30 0RF isosorbide mononitrate 30 mg tablet extended release 24 hr 30 mg PO QAM Qty: 30 0RF Continued levothyroxine 88 mcg tablet 88 mcg PO DAILY furosemide 20 mg tablet 20 mg PO DAILY budesonide-formoterol 160-4.5 mcg/actuation HFA aerosol inhaler 2 puff INHALATION BID Rx Instructions: Inhale 2 Puffs by mouth in the morning and 2 Puffs before bedtime. cetirizine 10 mg Tablet 10 mg PO DAILY folic acid 1 mg Tablet 1 mg PO DAILY albuterol sulfate 90 mcg/actuation Hfa Aerosol Inhaler 2 puff INHALATION QID PRN (Reason: SOB or Wheezing) omeprazole 20 mg Tablet,Delayed Release (Dr/Ec) 20 mg PO DAILY Vitamin D3 100 mcg (4,000 unit) Capsule 1,000 unit PO HS Changed losartan 50 mg tablet 50 mg PO QPM Qty: 30 0RF Discharge Orders: Discharge Order (Routine); Ordered 10/24/23 Ordered By: Marcela Walton Admission Data Admit Date/Time: 10/23/23 16:20 Attending Provider: Marcela Walton Admit Provider: Tico Rosas Primary Care Provider: Mervat Almanzar Other Providers: Leslye Lujan Satish Kumar
[2023-10-24 18:41] VITALS: PULSE 65
--- NOTE | 2023-10-24 21:50 | Electrocardiogram Report ---
Test Reason : Blood Pressure : */* mmHG Vent. Rate : 67 BPM Atrial Rate : 67 BPM P-R Int : 162 ms QRS Dur : 126 ms QT Int : 446 ms P-R-T Axes : 59 96 16 degrees QTcB Int : 471 ms Normal sinus rhythm with sinus arrhythmia Right bundle branch block Abnormal ECG No previous ECGs available Confirmed by Silas Qureshi ([id number]) on 10/24/2023 9:50:07 PM Referred By: REFERRED SELF Confirmed By: Silas Qureshi
== END 2023-10-24 19:21 | disposition home or self-care (01) | DRG 313 ==
LOC: ED 13:53 → SUATTDRO 16:20 → 2N 16:20